=== PATIENT | male | born 1965 | race Caucasian/White ===

== ENCOUNTER 2023-10-04 07:50 | Observation (INO) | payer BC, SELFPAY ==
[2023-10-04] VITALS (67 sets, daily range): BP systolic 105–157; BP diastolic 47–97; PULSE 52–86; RESP 7–22; TEMP 36.5–36.6; O2SAT 78–100; BMI 45.6; BMI 49.5
--- NOTE | 2023-10-04 07:54 | ECG_ITS ---
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
--- NOTE | 2023-10-04 07:54 | XR_ITS ---
The [address] [address] Patient Name: ZEYNEP DAVISON MRN: [id number] date: 1965 Sex: M Assigned Patient Location: ER Current Patient Location: ER Accession/Order Number: [id number] Exam Date: 10/04/2023 08:05 Report Date: 10/04/2023 08:24 At the request of: TERESA SOTO Procedure: XR chest 1V EXAM: XR chest 1V HISTORY: vertigo COMPARISON: None TECHNIQUE: AP view of the chest was obtained with portable technique at 8:01 AM. FINDINGS: Heart is within the upper limits of normal for size. No acute infiltrate or consolidations are seen. Mild elevation the right hemidiaphragm. No obvious pneumothorax. Mild degenerative changes in the dorsal spine. XR/XR chest 1V IMPRESSION: No acute process seen in the chest. Electronically authenticated by: URBAN QUESADA Date: 10/04/2023 08:24
--- NOTE | 2023-10-04 07:54 | CT_ITS ---
The [address] [address] Patient Name: ZEYNEP DAVISON MRN: [id number] date: 1965 Sex: M Assigned Patient Location: ER Current Patient Location: ER Accession/Order Number: [id number] Exam Date: 10/04/2023 08:05 Report Date: 10/04/2023 08:37 At the request of: TERESA RODARTE Procedure: CT stroke head/brain wo con EXAMINATION: CT stroke head/brain wo con HISTORY: vertigo COMPARISON: No relevant comparison available. TECHNIQUE: Axial CT images were obtained without IV contrast. Dose reduction techniques were achieved by using automated exposure control and/or adjustment of mA and/or kV according to patient size and/or use of iterative reconstruction technique. FINDINGS: BRAIN: No acute hemorrhage or mass. Mild generalized supratentorial atrophy. Mild white matter hypoattenuation, chronic small vessel ischemic changes are favored CSF SPACES: No hydrocephalus, subarachnoid hemorrhage, or mass. Appropriate for age. SKULL: No fracture, mass, or other significant visible lesion. SINUSES: Mild bilateral maxillary sinus disease ORBITS: No appreciable abnormality on the limited views. OTHER: Scattered arterial calcifications Findings discussed with Dr. rodarte at 8:[address]/CT stroke head/brain wo con IMPRESSION: No acute intracranial abnormality Electronically authenticated by: PEPE SHORE Date: 10/04/2023 08:37
[2023-10-04 08:08] LABS: Basophils Absolute Auto 0.1 10^3/uL (0.0-0.1); Basophils Percent Auto 0.8 % (0.2-2.0); Eosinophils Absolute Auto 0.3 10^3/uL (0.0-0.7); Eosinophils Percent Auto 3.2 % (0.9-7.0); Hematocrit 45.5 % (42.0-54.0); Hemoglobin 14.5 g/dL (14.0-18.0); Immature Granulocytes Abs Auto 0.06 10^3/uL (0.00-0.03); Immature Granulocytes Pct Auto 0.6 % (0.0-0.5); Lymphocytes Absolute Auto 3.6 10^3/uL (1.2-3.8); Lymphocytes Percent Auto 35.1 % (20.5-60.0); Mean Corpuscular HGB Conc 31.9 g/dL (29.9-35.2); Mean Corpuscular Hemoglobin 30.3 pg (25.9-34.0); Mean Corpuscular Volume 95.2 fL (80.0-94.0); Mean Platelet Volume 10.4 fL (9.5-13.5); Monocytes Percent Auto 9.8 % (1.7-12.0); Neutrophils Absolute Auto 5.2 10^3/uL (1.4-6.5); Neutrophils Percent Auto 50.5 % (43.0-75.0); Platelet Count 212 10^3/uL (150-450); Red Blood Count 4.78 10^6/uL (4.70-6.10); Red Cell Distribution Width 13.6 % (11.0-15.0); White Blood Count 10.3 10^3/uL (4.0-11.0)
[2023-10-04] MEDS: ONDANSETRON PF 4 MG/2 ML VIAL IV ×3 (08:11→16:39)
[2023-10-04] MEDS: PROCHLORPERAZINE 10 MG/2 ML VIAL IV (08:19)
[2023-10-04] MEDS: DIAZEPAM 10 MG/2 ML SYRINGE 2 MG IV (08:19)
[2023-10-04 08:24] LABS: INR 0.97; Prothrombin Time 10.3 sec (9.0-11.6)
[2023-10-04] MEDS: 0.9 % SODIUM CHLORIDE 1,000 ML 1000 ML IV (08:24)
[2023-10-04 08:25] LABS: Alanine Aminotransferase 32 U/L (16-63); Alkaline Phosphatase 98 U/L (46-116); Aspartate Amino Transferase 27 U/L (15-37); BUN Creatinine Ratio 13.7; Bilirubin Total 0.4 mg/dL (0.2-1.0); Calcium 8.8 mg/dL (8.5-10.1); Carbon Dioxide 27.2 mmol/L (21.0-32.0); Chloride 101 mmol/L (98-107); Estimated GFR (African America >60 (>=60); Estimated GFR (Non-African Ame 52 (>=60); Globulin 3.9 g/dL; Glucose 206 mg/dL (74-106); Potassium 3.2 mmol/L (3.5-5.1); Sodium 139 mmol/L (136-145); Total Protein 7.9 g/dL (6.4-8.2)
[2023-10-04 08:27] LABS: Troponin I High Sensitivity 15.8 pg/mL (4.0-76.1)
--- NOTE | 2023-10-04 08:31 | ED.GENADUL1 ---
HPI - General Adult General Chief complaint: Dizziness Stated complaint: DIZZINESS, VOMITING Time Seen by Provider: 10/04/23 07:53 Source: patient and other Source information: EMS Mode of arrival: ambulance Limitations: altered mental status History of Present Illness HPI narrative: Patient is a 58-year-old male who is presenting to the Emergency Room by EMS secondary to vertigo. Patient was driving home from work today. 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 Patient was driving home, thankfully he was pulled over by the police secondary to dizziness. Patient had acute onset of vertigo driving on the way home. Patient's having intractable nausea and vomiting secondary to vertigo. No headache. Patient has had vertigo several years ago. Patient has no chest pain or shortness of breath. Patient blood sugar was checked and it was over 200 by EMS. Patient did have an IV established by EMS and then it became no good. Patient has no headache or neck pain, patient intractable vomiting, no other acute complaints. No coffee-ground emesis, no hematemesis, patient has yellowish green emesis that is coming out. . All systems are negative except as noted/marked. All systems reviewed and otherwise negative. . Nurses note and vital signs reviewed and patient is not hypoxic. General: The patient appears well and in no apparent distress. Patient is resting comfortably on cart. Patient is not toxic, lethargic, or listless Skin: Warm, dry, no pallor noted. There is no rash noted. No petechiae, purpura. Head: Normocephalic, atraumatic, No midline or paracervical tenderness to palpation; large thick neck, Eye: Normal conjunctiva, no drainage, EOMI. PERRL; No nystagmus vertical, horizontal,Or rotary. Ears, Nose, Mouth, and Throat: oral mucosa is moist. Nares patent. Mouth without vesicles. Patient Bilateral tympanic membranes shows no erythema, perforation or bulging. Cardiovascular: Regular Rate and Rhythm, no murmur, gallop, rub Respiratory: Patient is in no distress, no accessory muscle use, lungs are clear to auscultation, no wheezing, rales or rhonchi Back: non-tender, no CVA tenderness bilaterally to percussion. No CT LS midline pain GI: soft, Morbidly obese, no tenderness to palpation, no masses appreciated. No rebound, guarding, or rigidity noted. No flank pain bilateral, No distention Musculoskeletal: Patient has full range of motion of all of the extremities, no motor, sensory, or focal neurological deficits Neurological: A&O x3, normal speech; NIH 0 Psychiatric: Cooperative Related Data Home Medications Medication Instructions Recorded Confirmed atorvastatin 40 mg tablet 40 mg PO .qd 10/04/23 10/04/23 empagliflozin 10 mg tablet 10 mg PO .qd 10/04/23 10/04/23 (Jardiance) hydrochlorothiazide 12.5 mg tablet 12.5 mg PO .qd 10/04/23 10/04/23 lisinopril 40 mg tablet 40 mg PO .qd 10/04/23 10/04/23 metoprolol succinate 100 mg 100 mg PO .qd 10/04/23 10/04/23 tablet,extended release 24 hr Previous Rx's Medication Instructions Recorded meclizine 25 mg chewable tablet 25 mg PO TID PRN dizziness or 10/04/23 (Antivert) vertigo #7 tabs ondansetron 4 mg disintegrating 4 mg PO Q4H PRN nausea and 10/04/23 tablet vomiting 3 days #6 tabs Allergies Allergy/AdvReac Type Severity Reaction Status Date / Time No Known Drug Allergies Allergy Verified 10/04/23 08:02 [facility] Social History Smoking status: Current every day smoker Exam Constitutional Vital Signs, click to edit/add: Last Vital Signs Temp 97.7 F 10/04/23 07:57 Pulse 77 10/04/23 11:01 Resp 17 10/04/23 11:01 BP 115/71 10/04/23 13:01 Pulse Ox 98 10/04/23 13:01 O2 Del Method Room Air 10/04/23 07:57 Course Vital Signs Vital signs: Vital Signs Temperature 97.7 F 10/04/23 07:57 Pulse Rate 77 10/04/23 07:57 Respiratory Rate 18 10/04/23 07:57 Blood Pressure 157/97 H 10/04/23 07:57 Pulse Oximetry 92 L 10/04/23 07:57 Oxygen Delivery Method Room Air 10/04/23 07:57 Temperature 97.7 F 10/04/23 07:57 Pulse Rate 77 10/04/23 11:01 Respiratory Rate 17 10/04/23 11:01 Blood Pressure 115/71 10/04/23 13:01 Pulse Oximetry 98 10/04/23 13:01 Oxygen Delivery Method Room Air 10/04/23 07:57 Medical Decision Making MDM Narrative Medical decision making narrative: CT of the brain shows no acute pathology. Patient was initially placed on nasal cannula and patient has benign nonrebreather Secondary to patient Being somnolent from just getting off manager configuration initially sleeping at this time, also secondary to receiving Compazine and Valium to help with nausea and vertigo. Patient oxygen was dropping, patient has been on a 15 L nonrebreather for most of his Emergency Room stay. Patient was Intermittently trying to take the nonrebreather off because of comfort. Patient was redirected several times by Taryn CONNELLY that he needs to wear his oxygen/nonrebreather was in the Emergency Room to help improving hypoxia when he is not wearing oxygen. Patient's CO2 level was 59,Patient's pH is 7.29. Patient has ongoing chronic respiratory acidosis secondary to undiagnosed sleep apnea. Patient sleeps in another room from his . Patient's nor significant family. Patient was told that he should have had a sleep apnea test many, many years ago from his PCP from [place]. 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 Patient and understand very clearly the significance and importance of following up with a sleep study and patient most likely needs to be wearing some type of oxygen/CPAP/device to help him sleep at nighttime. He states this is been going on for a long time, possibly 10-20 years if not longer. Patient's vertigo has improved. Patient was given Zofran, Compazine and Valium to help with nausea, patient was given Valium and meclizine to help with vertigo. Patient vertigo and nausea have completely resolved at discharge. 5-10 minutes was spent at bedside talking about sleep apnea, chronic hypercarbia, chronic respiratory acidosis, and the importance of following up with testing as recommended by his PCP and to have sleep studies and patient should be wearing some type of oxygen at nighttime. Patient are very clear on this. agrees, even try to get him to do this test 3 years and patient has refused. Patient is alert and oriented ?3, has a functional decision capacity to be discharged will follow-up with PCP. At discharge, patient was stood up, patient was very unsteady, wildly, and vertigo started again with nausea and dry heaving. Patient will now be admitted for intractable vertigo. I spoke to Dr Brennan, and he'll be admitting the patient. He is aware of intractable vertigo. I educated patient is about ruling out vertebrobasilar stroke or any other possible etiology for vertigo. Patient case was also discussed with admitting hospitalist about his chronic respiratory acidosis, most likely difficulty with sleep apnea at nighttime is been going on for over 10-20 years per patient and . Lab Data Lab results reviewed: Yes I reviewed the patient's lab results Labs: Lab Results 10/04/23 10/04/23 10/04/23 Range/Units 08:02 08:07 08:31 WBC 10.3 (4.0-11.0) 10^3/uL RBC 4.78 (4.70-6.10) 10^6/uL Hgb 14.5 (14.0-18.0) g/dL Hct 45.5 (42.0-54.0) % MCV 95.2 H (80.0-94.0) fL MCH 30.3 (25.9-34.0) pg MCHC 31.9 (29.9-35.2) g/dL RDW 13.6 (11.0-15.0) % Plt Count 212 (150-450) 10^3/uL MPV 10.4 (9.5-13.5) fL Neut % (Auto) 50.5 (43.0-75.0) % Lymph % (Auto) 35.1 (20.5-60.0) % [place] % (Auto) 9.8 (1.7-12.0) % Eos % (Auto) 3.2 (0.9-7.0) % Baso % (Auto) 0.8 (0.2-2.0) % Neut # (Auto) 5.2 (1.4-6.5) 10^3/uL Lymph # (Auto) 3.6 (1.2-3.8) 10^3/uL [place] # (Auto) 1.0 H (0.3-0.8) 10^3/uL Eos # (Auto) 0.3 (0.0-0.7) 10^3/uL Baso # (Auto) 0.1 (0.0-0.1) 10^3/uL Abs Immat Gran (auto) 0.06 H (0.00-0.03) 10^3/uL Imm/Tot Granulo (auto) 0.6 H (0.0-0.5) % PT 10.3 (9.0-11.6) sec INR 0.97 VBG pH (7.330-7.430) VBG pCO2 (40.0-52.0) mmHg Sodium 139 (136-145) mmol/L Potassium 3.2 L (3.5-5.1) mmol/L Chloride 101 (98-107) mmol/L Carbon Dioxide 27.2 (21.0-32.0) mmol/L Anion Gap 14.0 BUN 19.0 H (7.0-18.0) mg/dL Creatinine 1.39 H (0.70-1.30) mg/dL Est GFR ( Amer) >60 (>=60) Est GFR (Non-Af Amer) 52 L (>=60) BUN/Creatinine Ratio 13.7 Glucose 206 H (74-106) mg/dL Estimat Average Glucose 160 mg/dL Hemoglobin A1c 7.2 H (4.5-6.2) % Calcium 8.8 (8.5-10.1) mg/dL Total Bilirubin 0.4 (0.2-1.0) mg/dL AST 27 (15-37) U/L ALT 32 (16-63) U/L Alkaline Phosphatase 98 (46-116) U/L Troponin I High Sens 15.8 (4.0-76.1) pg/mL Total Protein 7.9 (6.4-8.2) g/dL Albumin 4.0 (3.4-5.0) g/dL Globulin 3.9 g/dL Albumin/Globulin Ratio 1.0 Triglycerides 201 H (<=150) mg/dL Cholesterol 159 (<=200) mg/dL LDL Cholesterol, Calc 80.0 mg/dL VLDL Cholesterol 40.2 mg/dL HDL Cholesterol 39 L (40-60) mg/dL Cholesterol/HDL Ratio 4.1 Urine Color (YELLOW) Urine Clarity (CLEAR) Urine pH (5.0-9.0) Ur Specific [place] (1.005-1.025) Urine Protein (NEG/TRACE) mg/dL Urine Glucose (UA) (NEGATIVE) mg/dL Urine Ketones (NEGATIVE) mg/dL Urine Occult Blood (NEGATIVE) Urine Nitrite (NEGATIVE) Urine Bilirubin (NEGATIVE) Urine Urobilinogen (0.2-1.0) EU/dL Ur Leukocyte Esterase (NEGATIVE) Urine RBC (0-2) #/HPF Urine WBC (NONE SEEN) #/HPF Ur Squamous Epith Cells (NONE/RARE) #/LPF Urine Bacteria (NONE SEEN) #/HPF Urine Mucus (NONE SEEN) 10/04/23 10/04/23 Range/Units 08:36 09:10 WBC (4.0-11.0) 10^3/uL RBC (4.70-6.10) 10^6/uL Hgb (14.0-18.0) g/dL Hct (42.0-54.0) % MCV (80.0-94.0) fL MCH (25.9-34.0) pg MCHC (29.9-35.2) g/dL RDW (11.0-15.0) % Plt Count (150-450) 10^3/uL MPV (9.5-13.5) fL Neut % (Auto) (43.0-75.0) % Lymph % (Auto) (20.5-60.0) % [place] % (Auto) (1.7-12.0) % Eos % (Auto) (0.9-7.0) % Baso % (Auto) (0.2-2.0) % Neut # (Auto) (1.4-6.5) 10^3/uL Lymph # (Auto) (1.2-3.8) 10^3/uL [place] # (Auto) (0.3-0.8) 10^3/uL Eos # (Auto) (0.0-0.7) 10^3/uL Baso # (Auto) (0.0-0.1) 10^3/uL Abs Immat Gran (auto) (0.00-0.03) 10^3/uL Imm/Tot Granulo (auto) (0.0-0.5) % PT (9.0-11.6) sec INR VBG pH 7.289 L (7.330-7.430) VBG pCO2 59.8 H (40.0-52.0) mmHg Sodium (136-145) mmol/L Potassium (3.5-5.1) mmol/L Chloride (98-107) mmol/L Carbon Dioxide (21.0-32.0) mmol/L Anion Gap BUN (7.0-18.0) mg/dL Creatinine (0.70-1.30) mg/dL Est GFR ( Amer) (>=60) Est GFR (Non-Af Amer) (>=60) BUN/Creatinine Ratio Glucose (74-106) mg/dL Estimat Average Glucose mg/dL Hemoglobin A1c (4.5-6.2) % Calcium (8.5-10.1) mg/dL Total Bilirubin (0.2-1.0) mg/dL AST (15-37) U/L ALT (16-63) U/L Alkaline Phosphatase (46-116) U/L Troponin I High Sens (4.0-76.1) pg/mL Total Protein (6.4-8.2) g/dL Albumin (3.4-5.0) g/dL Globulin g/dL Albumin/Globulin Ratio Triglycerides (<=150) mg/dL Cholesterol (<=200) mg/dL LDL Cholesterol, Calc mg/dL VLDL Cholesterol mg/dL HDL Cholesterol (40-60) mg/dL Cholesterol/HDL Ratio Urine Color Lt. yellow (YELLOW) Urine Clarity Clear (CLEAR) Urine pH 6.0 (5.0-9.0) Ur Specific [place] 1.020 (1.005-1.025) Urine Protein Negative (NEG/TRACE) mg/dL Urine Glucose (UA) >=1000 A (NEGATIVE) mg/dL Urine Ketones Negative (NEGATIVE) mg/dL Urine Occult Blood Negative (NEGATIVE) Urine Nitrite Negative (NEGATIVE) Urine Bilirubin Negative (NEGATIVE) Urine Urobilinogen 0.2 (0.2-1.0) EU/dL Ur Leukocyte Esterase Negative (NEGATIVE) Urine RBC None seen (0-2) #/HPF Urine WBC None seen (NONE SEEN) #/HPF Ur Squamous Epith Cells Few A (NONE/RARE) #/LPF Urine Bacteria None seen (NONE SEEN) #/HPF Urine Mucus None seen (NONE SEEN) ECG Data Attestation: I personally reviewed and interpreted this ECG as follows: (EKG interpretation. Normal sinus rhythm at 75 beats a minute. Left axis deviation. No acute ST elevation, no acute ectopy. QTC of 453.) Discharge Plan Discharge Chief Complaint: Dizziness Clinical Impression: Sleep apnea-like behavior, History of respiratory acidosis, Vertigo, Nausea & vomiting Patient Disposition: Admitted as Observation Time of Disposition Decision: 10:57 Condition: Fair
[2023-10-04 08:47] LABS: PCO2 VBG 59.8 mmHg (40.0-52.0); pH VBG 7.289 (7.330-7.430)
--- NOTE | 2023-10-04 08:47 | PC.NURSE ---
Pt placed on NRB d/t bad sleep apnea. pt keeps falling asleep and SpO2 drops to 78% on RA. Pt occasionally will take off NRB mask but with it, pt is 100%
[2023-10-04] MEDS: MECLIZINE HCL 12.5 MG TABLET 25 MG PO (09:30)
[2023-10-04] MEDS: POTASSIUM BICARBONATE/CIT 25 MEQ TABLET EFF 50 MEQ PO (09:31)
[2023-10-04 10:02] LABS: Bilirubin Urine NEGATIVE (NEGATIVE); Blood Urine NEGATIVE (NEGATIVE); Clarity Urine CLEAR (CLEAR); Color Urine LT. YELLOW (YELLOW); Glucose Urine UA >=1000 mg/dL (NEGATIVE); Ketones Urine NEGATIVE (NEGATIVE); Leukocyte Esterase Urine NEGATIVE (NEGATIVE); Nitrite Urine NEGATIVE (NEGATIVE); Protein Urine NEGATIVE (NEG/TRACE); Urobilinogen Urine 0.2 EU/dL (0.2-1.0)
[2023-10-04 10:11] LABS: Bacteria Urine NONE SEEN #/HPF (NONE SEEN); Mucus Urine NONE SEEN (NONE SEEN); RBC Urine NONE SEEN #/HPF (0-2); Squamous Epithelial Cell Urine FEW #/LPF (NONE/RARE); WBC Urine NONE SEEN #/HPF (NONE SEEN)
--- NOTE | 2023-10-04 10:14 | PC.NURSE ---
ASKED PT IF HE WOULD LIKE TO TRY TO GET UP AND WALK -- STATES HE DOESN'T THINK HE WILL BE ABLE TO DO IT D/T THE DIZZINESS. INFORMED DR SOTO
--- NOTE | 2023-10-04 11:32 | PC.NURSE ---
PT GOT READY TO BE DISCHARGED, PT WOBBLY WHEN HE STOOD UP. SAT PT BACK DOWN ON BED. PT STATES VERTIGO IS BAD AGAIN AND STARTS VOMITING. INFORMED DR SOTO.
--- NOTE | 2023-10-04 11:35 | MR_ITS ---
The [place] [id number] Patient Name: ZEYNEP DAVISON MRN: [id number] date: 1965 Sex: M Assigned Patient Location: MS Current Patient Location: MS Accession/Order Number: [id number] Exam Date: 10/04/2023 12:10 Report Date: 10/04/2023 14:27 At the request of: SHAIKH DAWIT Procedure: MR head/brain wo con MRI brain without contrast, 10/04/2023. HISTORY: Dizziness. Disorientation. COMPARISON: CT head, 10/04/2023. TECHNIQUE: Multiplanar, multisequence MRI imaging of the brain without contrast. FINDINGS: There is motion artifact. Paranasal sinuses are essentially clear. Mastoid air cells are clear. Nasopharynx normal. [employer] spaces are normal. Orbital contents are unremarkable. No hydrocephalus. No mass effect. No shift of midline. Mild chronic microvascular ischemic changes in the cerebral white matter. Diffusion images normal. No evidence of acute ischemic infarction. No hemorrhagic lesions. No masses. MR/MR head/brain wo con IMPRESSION: 1. No acute infarction. Mild chronic microvascular ischemic changes. 2. No masses. No acute findings. Electronically authenticated by: TAMICA HARTMAN Date: 10/04/2023 14:27
[2023-10-04 12:20] LABS: Chol HDL Ratio 4.1; Cholesterol 159 mg/dL (<=200); HDL Cholesterol 39 mg/dL (40-60); Triglycerides 201 mg/dL (<=150); VLDL CHOLESTEROL 40.2 mg/dL
[2023-10-04 12:21] LABS: Estimated Average Glucose 160 mg/dL; Glycohemoglobin A1C 7.2 % (4.5-6.2)
[2023-10-04] MEDS: LACTATED RINGER'S SOLUTION 1,000 ML 100 ML IV (14:51)
[2023-10-04 16:21] LABS: Allen Test POSITIVE (POSITIVE); Base Excess ABG 4.7 mmol/L (-2.0-2.0); HCO3 ABG 32.1 mmol/L (22.0-26.0); Liters per Minute 15; O2 Mode NRBM; Puncture Site L RADIAL
--- NOTE | 2023-10-04 16:32 | RESP.RT ---
patient placed on vapotherm 40L, 30%, post ABG draw.
[2023-10-04] MEDS: ENOXAPARIN SODIUM 40 MG/0.4 ML SYRINGE SUBQ (16:39)
[2023-10-04] MEDS: ASPIRIN 81 MG TAB.CHEW PO (16:40)
--- NOTE | 2023-10-04 17:45 | CT_ITS ---
The [address] [address] Patient Name: ZEYNEP DAVISON MRN: [id number] date: 1965 Sex: M Assigned Patient Location: ICU Current Patient Location: ICU Accession/Order Number: [id number] Exam Date: 10/04/2023 19:25 Report Date: 10/04/2023 20:41 At the request of: SHAIKH DAWIT Procedure: CT angio chest EXAM: CT angio chest HISTORY: SOB COMPARISON: Chest x-ray dated 10/04/2023. TECHNIQUE: Multiple axial images of the chest were obtained following rapid IV contrast sedation. Coronal and sagittal reformatted sequences are submitted for review. FINDINGS: This is a limited examination due to breathing artifact and suboptimal contrast opacification of the pulmonary arteries. No definite abrupt cut off or significant filling defect is seen in the central or proximal segmental pulmonary arteries to suggest CT evidence for pulmonary embolism. The main pulmonary trunk measures approximately 3.3 cm in diameter. Thoracic aorta is normal in course and caliber. There is no evidence for thoracic aortic aneurysm. Mild cardiomegaly is seen. There is no evidence for pericardial effusion. Mild atelectatic changes are seen in the lung bases bilaterally. Small hazy changes are also seen in the subpleural bilateral upper lobes, which may represent atelectatic changes. However, infectious etiology cannot be excluded. No significant enlarged hilar, mediastinal or axillary adenopathy is seen. No acute abnormality seen in the visualized upper abdomen. No acute or destructive osseous lesion is seen. CT/CT angio chest IMPRESSION: Limited examination due to breathing artifact and suboptimal contrast opacification of the pulmonary arteries. No definite CT evidence for pulmonary embolism seen in the central and proximal segmental pulmonary arteries. The main pulmonary trunk appears prominent, measuring approximately 3.3 cm in diameter. Clinical correlation for pulmonary artery hypertension may be considered. Mild atelectatic changes are seen in the lung bases bilaterally. Small hazy changes are also seen in the subpleural bilateral upper lobes, which may represent atelectatic changes. However, infectious etiology cannot be excluded. Electronically authenticated by: VÍCTOR BENJAMIN Date: 10/04/2023 20:41
--- NOTE | 2023-10-04 18:15 | RESP.RT ---
FiO2 increased from 30% to 50% as SpO2 down into 70's multiple times with deep sleep. Observed long periods of apnea while in the room.
[2023-10-04 18:18] LABS: Amphetamine Screen Urine NEGATIVE (NEGATIVE); Barbiturates Screen Urine NEGATIVE (NEGATIVE); Benzodiazepines Screen Urine NEGATIVE (NEGATIVE); Buprenorphine Screen Urine NEGATIVE (NEGATIVE); Cannabinoid Screen Urine NEGATIVE (NEGATIVE); Cocaine Screen Urine NEGATIVE (NEGATIVE); Methadone Screen Urine NEGATIVE (NEGATIVE); Methamphetamines Screen Urine NEGATIVE (NEGATIVE); Opiate Screen Urine NEGATIVE (NEGATIVE); Oxycodone Screen Urine NEGATIVE (NEGATIVE); Phencyclidine Screen Urine NEGATIVE (NEGATIVE); Tricyclic Antidepressant Urine NEGATIVE (NEGATIVE)
[2023-10-04] MEDS: LISINOPRIL 20 MG TABLET 40 MG PO (18:23)
[2023-10-04] MEDS: METOPROLOL SUCCINATE 100 MG TAB.ER.24H PO (18:23)
[2023-10-04 19:00] LABS: pH ABG 7.303 (7.350-7.450)
[2023-10-04 19:01] LABS: Allen Test POSITIVE (POSITIVE); Base Excess ABG 3.7 mmol/L (-2.0-2.0); HCO3 ABG 30.1 mmol/L (22.0-26.0)
[2023-10-04 19:02] LABS: BIPAP Pressure 18/8; Fractionated Inspired Oxygen 40 %; Puncture Site LR
[2023-10-04 19:03] LABS: Pressure Support 10; Rate 12
[2023-10-04 19:08] LABS: O2 Mode BIPAP
[2023-10-04 19:09] LABS: ABG PCO2 60.8 mmHg (35.0-45.0)
--- NOTE | 2023-10-04 20:16 | P.HP_ITS ---
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 However, before that could happen, local cupola repairer saw him and stopped to help him and called EMS for medical assistance. He was brought over to ED and was initially treated for possible peripheral vertigo and was given IV valium, meclizine with some improvement in his symptoms and plan was to discharge him with outpatient follow up but he got extremely dizzy and was really unsteady on his feet so hospitalist service was called for admission and evaluation. Patient also has been told that he likely has SHIRA but never formally diagnosed. ED provider noted that he was excessively snoring with apneic episodes and associated hypoxia and was concerned for possible respiratory acidosis. His VBG indicated mild resp acidosis presumed to be not much different from his baseline and when I assessed him in ED, while he was sleepy and drowsy, he was easily arousable, communicated well, participated in exam and answered questions appropriately. However, later on I was notified that patient developed worsening hypoxia, and became increasingly confused, lethargic that prompted an ABG - revealing worsening resp acidosis. Patient was moved to ICU on BIPAP for close monitoring. Patient's admission status was changed to inpatient due to change in clinical status. Repeat ABG shows improvement in acidosis, hypercapnia, hypoxia and I was inform ed by RN that patient is now much more comfortable, awake and in no acute distress. I ordered CTA chest for him to r/o PE and also an ECHO to assess cardiac structure to r/o alternative diagnosis and congestive HF, PE or pneumonia. His neurological examination at the time when I evaluated him was completely normal. He was still complaining of vertigo when he stood up and he felt better when he lays down. No prior hx of CVA or vertigo. Review of Systems ROS Status of ROS 10 or more systems reviewed and unremark able except as noted in history and below [facility] Medical History (Updated 10/04/23 @ 20:40 by Shaikh Mika MD) Obesity hypoventilation syndrome ?E66.2 - Morbid (severe) obesity with alveolar hypoventilation (ICD-10) Obesity ?E66.9 - Obesity, unspecified (ICD-10) High cholesterol ?E78.00 - Pure hypercholesterolemia, unspecified (ICD-10) Hypertension ?I10 - Essential (primary) hypertension (ICD-10) Heart murmur ?R01.1 - Cardiac murmur, unspecified (ICD-10) Diabetes ?E11.9 - Type 2 diabetes mellitus without complications (ICD-10) Family History (Updated 10/04/23 @ 14:04 by Magdalena Rosario) Grandmother Family history of cancer Father Family history of diabetes mellitus Family history of hypertension Mother Family history of diabetes mellitus Family history of hypertension Social History (Updated 10/04/23 @ 14:06 by Magdalena Rosario) Within the past year, how often did you have a drink containing alcohol: never Within the past year, how often did you have six or more drinks on one occasion: never Score interpretation: A score less than 4 is consistent with normal alcohol consumption. Smoking status: Current every day smoker Non-prescribed substance use: denies use Previous occupational history: [employer] Highest level of school completed/degree received: high school graduate Are you now , , , , never or living with a partner: In a typical week, how many times do you talk on the telephone with family, friends, or neighbors: 3 or more times per week How often do you get together with friends or relatives: twice per week How often do you attend adventism or buddhism services: never Do you belong to any clubs or organizations such as adventism groups unions, fraternal or athletic groups, or school groups: no Total score: 2 Score interpretation: A score of greater than or equal to 2 indicates the lowest level of social isolation. Little interest or pleasure in doing things: not at all Feeling down, depressed, or hopeless: not at all Meds Home Medications and Allergies Home Medications Medication Instructions Recorded Confirmed Type aspirin 81 mg capsule 81 mg PO DAILY 10/04/23 10/04/23 History atorvastatin 40 mg tablet 40 mg PO .qd 10/04/23 10/04/23 History empagliflozin 10 mg tablet 10 mg PO .qd 10/04/23 10/04/23 History (Jardiance) hydrochlorothiazide 12.5 mg tablet 12.5 mg PO .qd 10/04/23 10/04/23 History lisinopril 40 mg tablet 40 mg PO .qd 10/04/23 10/04/23 History meclizine 25 mg chewable tablet 25 mg PO TID PRN dizziness or 10/04/23 Rx (Antivert) vertigo #7 tabs metoprolol succinate 100 mg 100 mg PO .qd 10/04/23 10/04/23 History tablet,extended release 24 hr ondansetron 4 mg disintegrating 4 mg PO Q4H PRN nausea and 10/04/23 Rx tablet vomiting 3 days #6 tabs Allergies Allergy/AdvReac Type Severity Reaction Status Date / Time No Known Drug Allergies Allergy Verified 10/04/23 08:02 Exam Constitutional Vital Signs, click to edit/add: Last Vital Signs Temp 97.8 F 10/04/23 13:57 Pulse 66 10/04/23 19:08 Resp 18 10/04/23 13:57 BP 137/91 10/04/23 18:23 Pulse Ox 97 10/04/23 19:08 O2 Del Method Vapotherm 10/04/23 16:33 O2 Flow Rate 40 10/04/23 16:33 FiO2 40 10/04/23 17:50 Common normals: no apparent distress General appearance: cooperative, comfortable and lethargic Nutritional appearance: obese HENMT Common normals: normocephalic and head/scalp atraumatic Eye Common normals: PERRL, EOMs intact bilaterally and conjunctivae normal Respiratory Common normals: normal respiratory effort Effort & inspection: able to speak in complete sentences Auscultation: clear to auscultation bilaterally and diminished lung sounds Cardio Common normals: no JVD, regular rate, regular rhythm, S1 normal heart sound and S2 normal heart sound GI Common normals: Normal to inspection, nondistended, normoactive bowel sounds present, soft to palpation, non-tender and no hepatosplenomegaly Extremity Common normals: no clubbing, cyanosis or edema Neuro Common normals: oriented x3, CN's II-XII intact bilaterally, moves all extremities, no focal motor deficits and no sensory deficits noted Sensorium/orientation: somnolent Coordination: [id number] test normal and [id number] test normal Results Labs Labs: Short CBC 10/04/23 Range/Units 08:02 WBC 10.3 (4.0-11.0) 10^3/uL Hgb 14.5 (14.0-18.0) g/dL Hct 45.5 (42.0-54.0) % Plt Count 212 (150-450) 10^3/uL BMP 10/04/23 08:02 Sodium 139 Potassium 3.2 L Chloride 101 Carbon Dioxide 27.2 BUN 19.0 H Creatinine 1.39 H Glucose 206 H Calcium 8.8 Liver Function 10/04/23 Range/Units 08:02 Total Bilirubin 0.4 (0.2-1.0) mg/dL AST 27 (15-37) U/L ALT 32 (16-63) U/L Alkaline Phosphatase 98 (46-116) U/L Albumin 4.0 (3.4-5.0) g/dL Urine 10/04/23 Range/Units 09:10 Urine Color Lt. yellow (YELLOW) Urine Clarity Clear (CLEAR) Urine pH 6.0 (5.0-9.0) Ur Specific [place] 1.020 (1.005-1.025) Urine Protein Negative (NEG/TRACE) mg/dL Urine Glucose (UA) >=1000 A (NEGATIVE) mg/dL ABG ABG results: 10/04/23 10/04/23 10/04/23 08:36 16:08 18:50 ABG pH 7.240 L* 7.303 L ABG pCO2 75.0 H* 60.8 H* ABG pO2 225.0 H 123.0 H ABG HCO3 32.1 H 30.1 H ABG O2 Saturation 100.0 99.0 ABG Base Excess 4.7 H 3.7 H VBG pH 7.289 L VBG pCO2 59.8 H Assessment and Plan Assessment and Plan (1) Acute and chronic respiratory failure with hypercapnia: Assessment and Plan: Suspect OHS and chronic resp failure - never formally diagnosed but strong suspicion Acutely worsened from IV valium and NRB mask. However, an alternative etiology is being work up - CTA ordered to r/o PE, pneumonia and ECHO to r/o underlying congestive heart failure. Required ICU transfer, now on BIPAP. F/u ABG shows improvement. C/w BIPAP throughout the night. Avoid sedative/hypnotics. (2) Acute respiratory failure with hypoxia: Assessment and Plan: Unclear etiology but likely due to undiagnosed OHS and SHIRA. Normal CXR. No evidence of CHF clinically. CTA ordered to r/o PE Wean off O2 as tolerated. Currently on BIPAP. (3) Vertigo: Assessment and Plan: Acute onset with nausea, vomiting - no associated neurological symptoms. MRI negative for acute stroke. Likely peripheral vertigo. Meclizine as needed for vertigo (4) Diabetes: Assessment and Plan: on oral hypoglycemics. SSI while in patient. Qualifiers: Diabetes mellitus type: type 2 Diabetes mellitus senior living insulin use: without termite helper use Diabetes mellitus complication status: without complication Qualified Code(s): E11.9 - Type 2 diabetes mellitus without complications (5) Obesity hypoventilation syndrome: Assessment and Plan: Suspect underlying OHS. Currently on BIPAP. Will need outpatient Sleep study. Avoid sedative/hypnotics. (6) Hypertension: Assessment and Plan: c/w lisinopril. Hold HCTZ. Qualifiers: Hypertension type: primary hypertension Qualified Code(s): I10 - Essential (primary) hypertension (7) High cholesterol: Assessment and Plan: c/w statin (8) Obesity: Assessment and Plan: Recommend weight loss. Defer to PCP Qualifiers: Obesity type: due to excess calories Obesity classification: adult class 3 (BMI >= 40) Serious obesity comorbidity presence: with serious comorbidity (9) Elevated serum creatinine: Assessment and Plan: mild elevation. unknown baseline. Monitor for now.
--- NOTE | 2023-10-04 20:44 | RESP.RT ---
increased respiratory rate to 14
[2023-10-04 22:44] LABS: Glucometer 123 mg/dL (74-106)
[2023-10-05] VITALS (94 sets, daily range): BP systolic 114–172; BP diastolic 73–98; PULSE 58–85; RESP 0–20; TEMP 36.3–36.6; O2SAT 63–99
[2023-10-05 05:47] LABS: Basophils Percent Auto 0.4 % (0.2-2.0); Eosinophils Absolute Auto 0.1 10^3/uL (0.0-0.7); Eosinophils Percent Auto 1.9 % (0.9-7.0); Hematocrit 42.1 % (42.0-54.0); Hemoglobin 13.4 g/dL (14.0-18.0); Immature Granulocytes Abs Auto 0.03 10^3/uL (0.00-0.03); Immature Granulocytes Pct Auto 0.4 % (0.0-0.5); Lymphocytes Absolute Auto 1.5 10^3/uL (1.2-3.8); Lymphocytes Percent Auto 20.3 % (20.5-60.0); Mean Corpuscular HGB Conc 31.8 g/dL (29.9-35.2); Mean Corpuscular Hemoglobin 30.3 pg (25.9-34.0); Mean Corpuscular Volume 95.2 fL (80.0-94.0); Mean Platelet Volume 10.9 fL (9.5-13.5); Monocytes Absolute Auto 0.6 10^3/uL (0.3-0.8); Monocytes Percent Auto 7.8 % (1.7-12.0); Neutrophils Absolute Auto 5.2 10^3/uL (1.4-6.5); Neutrophils Percent Auto 69.2 % (43.0-75.0); Platelet Count 182 10^3/uL (150-450); Red Blood Count 4.42 10^6/uL (4.70-6.10); Red Cell Distribution Width 13.5 % (11.0-15.0); White Blood Count 7.6 10^3/uL (4.0-11.0)
[2023-10-05 06:07] LABS: Alanine Aminotransferase 27 U/L (16-63); Albumin Globulin Ratio 0.9; Albumin Level 3.4 g/dL (3.4-5.0); Alkaline Phosphatase 73 U/L (46-116); Anion Gap 13.3; Aspartate Amino Transferase 21 U/L (15-37); BUN Creatinine Ratio 15.9; Bilirubin Total 0.7 mg/dL (0.2-1.0); Calcium 8.5 mg/dL (8.5-10.1); Carbon Dioxide 29.4 mmol/L (21.0-32.0); Chloride 101 mmol/L (98-107); Estimated GFR (African America >60 (>=60); Estimated GFR (Non-African Ame >60 (>=60); Globulin 3.6 g/dL; Glucose 95 mg/dL (74-106); Potassium 3.7 mmol/L (3.5-5.1); Sodium 140 mmol/L (136-145)
[2023-10-05 09:17] LABS: Glucometer 105 mg/dL (74-106)
[2023-10-05] MEDS: ENOXAPARIN SODIUM 40 MG/0.4 ML SYRINGE SUBQ (09:25)
[2023-10-05] MEDS: ASPIRIN 81 MG TAB.CHEW PO (09:25)
[2023-10-05] MEDS: METOPROLOL SUCCINATE 100 MG TAB.ER.24H PO (09:26)
[2023-10-05] MEDS: LISINOPRIL 20 MG TABLET 40 MG PO (09:26)
--- NOTE | 2023-10-05 10:51 | REH.PTDLY ---
Physical Therapy Daily Note PT Daily Note/Assess Start: 10/04/23 17:03 Freq: Status: Active Protocol: Document 10/05/23 10:30 [id number] (Rec: 10/05/23 10:33 [id number]) Visit Not Completed Visit Not Completed Due to: Nursing request to hold Other Reason Visit Not Completed Per RN Steffi - fernanda this patient is on bipap and lethargic. Physical Therapy Daily Note/Assessment Time In 08:50 Time Out 08:52
--- NOTE | 2023-10-05 10:53 | REH.PTDLY ---
Physical Therapy Daily Note PT Daily Note/Assess Start: 10/04/23 17:03 Freq: Status: Active Protocol: Document 10/05/23 10:30 [id number] (Rec: 10/05/23 10:33 [id number]) Visit Not Completed Visit Not Completed Due to: Nursing request to hold Other Reason Visit Not Completed Per RN Steffi - fernanda this patient is on bipap and lethargic. Physical Therapy Daily Note/Assessment Time In 08:50 Time Out 08:52
--- NOTE | 2023-10-05 11:49 | PM.PN ---
Progress Note: Subjective Subjective Interval history: Patient improved this am. Used BiPAP overnight and more alert this am. Took off BiPAP for breakfast and desaturated on room air but improved on nasal canula. No SOB or cough. Still feels fatigued and run down. Reports prior home oxygen several years ago but did not keep. Normal appetite and no emesis or diarrhea. No chest pain or palpitations. Afebrile. Exam Constitutional Vital Signs, click to edit/add: Last Vital Signs Temp 97.6 F 10/05/23 08:48 Pulse 84 10/05/23 11:15 Resp 6 L 10/05/23 09:40 BP 114/80 10/05/23 09:26 Pulse Ox 89 L 10/05/23 11:15 O2 Del Method Room Air 10/05/23 11:11 O2 Flow Rate 1.5 10/05/23 10:00 FiO2 25 10/05/23 06:51 Documenting provider has reviewed patient's vital signs: yes Common normals: no apparent distress, oriented x3 and alert HENMT Common normals: normocephalic Eye Common normals: PERRL and EOMs intact bilaterally Respiratory Common normals: normal respiratory effort and clear to auscultation bilaterally Cardio Common normals: regular rate, regular rhythm, no gallops, no murmurs and no rub GI Common normals: Normal to inspection, nondistended, normoactive bowel sounds present and non-tender Extremity Common normals: no pedal edema Progress Note: Objective Labs Labs: Short CBC 10/05/23 Range/Units 04:17 WBC 7.6 (4.0-11.0) 10^3/uL Hgb 13.4 L (14.0-18.0) g/dL Hct 42.1 (42.0-54.0) % Plt Count 182 (150-450) 10^3/uL BMP 10/05/23 04:17 Sodium 140 Potassium 3.7 Chloride 101 Carbon Dioxide 29.4 BUN 13.0 Creatinine 0.82 Glucose 95 Calcium 8.5 Liver Function 10/05/23 Range/Units 04:17 Total Bilirubin 0.7 (0.2-1.0) mg/dL AST 21 (15-37) U/L ALT 27 (16-63) U/L Alkaline Phosphatase 73 (46-116) U/L Albumin 3.4 (3.4-5.0) g/dL Progress Note: A&P Assessment and Plan (1) Acute and chronic respiratory failure with hypercapnia: (2) Acute respiratory failure with hypoxia: (3) Obesity hypoventilation syndrome: (4) Vertigo: (5) SHIRA (obstructive sleep apnea): (6) Type 2 diabetes mellitus with hyperglycemia: (7) Hypertension: Qualifiers: Hypertension type: primary hypertension Qualified Code(s): I10 - Essential (primary) hypertension (8) Morbid obesity: Plan Improved with BiPAP but still hypoxia. Wean O2 as tolerated. Add PEP. Encourage ambulation around room. If not able to wean off oxygen will need walk test to see if qualifies for home O2. Likely will be ready for discharge in am.
[2023-10-05 16:40] LABS: Glucometer 112 mg/dL (74-106)
[2023-10-05 20:31] LABS: Glucometer 130 mg/dL (74-106)
[2023-10-05] MEDS: ATORVASTATIN CALCIUM 40 MG TABLET PO (20:33)
[2023-10-06] VITALS (8 sets, daily range): BP systolic 121; BP diastolic 71; PULSE 50–74; RESP 14–16; TEMP 36.6; O2SAT 90–99
[2023-10-06 05:18] LABS: Basophils Percent Auto 0.4 % (0.2-2.0); Eosinophils Absolute Auto 0.2 10^3/uL (0.0-0.7); Eosinophils Percent Auto 3.1 % (0.9-7.0); Hematocrit 41.8 % (42.0-54.0); Hemoglobin 13.5 g/dL (14.0-18.0); Immature Granulocytes Abs Auto 0.03 10^3/uL (0.00-0.03); Immature Granulocytes Pct Auto 0.4 % (0.0-0.5); Lymphocytes Absolute Auto 1.9 10^3/uL (1.2-3.8); Lymphocytes Percent Auto 25.5 % (20.5-60.0); Mean Corpuscular HGB Conc 32.3 g/dL (29.9-35.2); Mean Corpuscular Hemoglobin 30.7 pg (25.9-34.0); Mean Platelet Volume 10.5 fL (9.5-13.5); Monocytes Absolute Auto 0.6 10^3/uL (0.3-0.8); Monocytes Percent Auto 7.7 % (1.7-12.0); Neutrophils Absolute Auto 4.7 10^3/uL (1.4-6.5); Neutrophils Percent Auto 62.9 % (43.0-75.0); Platelet Count 177 10^3/uL (150-450); Red Cell Distribution Width 13.4 % (11.0-15.0); White Blood Count 7.5 10^3/uL (4.0-11.0)
[2023-10-06 05:39] LABS: Alanine Aminotransferase 22 U/L (16-63); Albumin Globulin Ratio 0.9; Albumin Level 3.2 g/dL (3.4-5.0); Alkaline Phosphatase 72 U/L (46-116); Anion Gap 12.5; Aspartate Amino Transferase 20 U/L (15-37); BUN Creatinine Ratio 20.5; Bilirubin Total 0.4 mg/dL (0.2-1.0); Calcium 8.2 mg/dL (8.5-10.1); Carbon Dioxide 29.1 mmol/L (21.0-32.0); Chloride 103 mmol/L (98-107); Estimated GFR (African America >60 (>=60); Estimated GFR (Non-African Ame >60 (>=60); Globulin 3.5 g/dL; Glucose 110 mg/dL (74-106); Potassium 3.6 mmol/L (3.5-5.1); Sodium 141 mmol/L (136-145); Total Protein 6.7 g/dL (6.4-8.2)
[2023-10-06] MEDS: METOPROLOL SUCCINATE 100 MG TAB.ER.24H PO (09:26)
[2023-10-06] MEDS: ASPIRIN 81 MG TAB.CHEW PO (09:26)
[2023-10-06] MEDS: LISINOPRIL 20 MG TABLET 40 MG PO (09:26)
--- NOTE | 2023-10-06 10:56 | P.DS_ITS ---
DS: Providers Provider Date of admission: 10/04/23 13:30 Primary care physician: Non-Staff Physician, Consults: 10/04/23 11:35 Occupational Therapy Eval and Treat Routine Reason for consultation: Ambulatory dysfunction/weakness Physical Therapy Eval and Treat Routine Reason for consultation: Ambulatory dysfunction/weakness DS: Diagnosis Discharge Diagnosis (1) Acute and chronic respiratory failure with hypercapnia: (2) Acute respiratory failure with hypoxia: (3) Obesity hypoventilation syndrome: (4) Vertigo: (5) SHIRA (obstructive sleep apnea): (6) Type 2 diabetes mellitus with hyperglycemia: (7) Hypertension: Qualifiers: Hypertension type: primary hypertension Qualified Code(s): I10 - Essential (primary) hypertension (8) Morbid obesity: DS: Summary Hospital Course Hospital Course: Reason for admission: See ER note and H&P for details. 58 y/o male to ER with vertigo and fatigue. Patient driving home from work and had sudden onset of vertigo. History of vertigo several years ago and felt similar. Pulled over and brought in by EMS. Glucose [address] head negative. Reports history of SHIRA diagnosed years ago but not on PAP therapy. ABG in ER showed pCO2 60. Noted fatigue and somnolence in ER. Attempted discharge but worsening vertigo and admitted. Hospital course: Started BiPAP and improved. MRI brain normal and A1C 7.2. Noted severe SHIRA while sleeping and patient would stop breathing. SpO2 decreased into the 60s on room air when sleeping. Normal SpO2 when up and awake. Patient ambulating around room. Arranged for nocturnal oxygen at home. Patient discharged home in stable condition. Need to contact PCP for follow up this week and need CPAP titration study as soon as possible so can get home PAP machine. Resume home medication as directed. Time Spent with Patient Time attestation: Total time spent providing and/or coordinating discharge services: Exam Constitutional Vital Signs, click to edit/add: Last Vital Signs Temp 98 F 10/06/23 08:00 Pulse 74 10/06/23 10:00 Resp 16 10/06/23 08:00 BP 121/71 10/06/23 08:00 Pulse Ox 90 L 10/06/23 10:00 O2 Del Method BIPAP 10/06/23 08:00 O2 Flow Rate 0 10/06/23 08:00 FiO2 25 10/06/23 08:00 Documenting provider has reviewed patient's vital signs: yes Common normals: no apparent distress, oriented x3 and alert HENMT Common normals: normocephalic Eye Common normals: PERRL and EOMs intact bilaterally Respiratory Common normals: normal respiratory effort and clear to auscultation bilaterally Cardio Common normals: regular rate, regular rhythm, no gallops, no murmurs and no rub GI Common normals: Normal to inspection, nondistended, normoactive bowel sounds present and non-tender Extremity Common normals: no pedal edema DS: Data Data Completed and Pending Labs on day of discharge: Labs from last 24 hours 10/06/23 10/05/23 10/05/23 04:16 20:29 16:39 WBC 7.5 RBC 4.40 L Hgb 13.5 L Hct 41.8 L MCV 95.0 H MCH 30.7 MCHC 32.3 RDW 13.4 Plt Count 177 MPV 10.5 Neut % (Auto) 62.9 Lymph % (Auto) 25.5 Mineral % (Auto) 7.7 Eos % (Auto) 3.1 Baso % (Auto) 0.4 Neut # (Auto) 4.7 Lymph # (Auto) 1.9 Mineral # (Auto) 0.6 Eos # (Auto) 0.2 Baso # (Auto) 0.0 Abs Immat Gran (auto) 0.03 Imm/Tot Granulo (auto) 0.4 Sodium 141 Potassium 3.6 Chloride 103 Carbon Dioxide 29.1 Anion Gap 12.5 BUN 18.0 Creatinine 0.88 Est GFR ( Amer) >60 Est GFR (Non-Af Amer) >60 BUN/Creatinine Ratio 20.5 Glucose 110 H Calcium 8.2 L Total Bilirubin 0.4 AST 20 ALT 22 Alkaline Phosphatase 72 Total Protein 6.7 Albumin 3.2 L Globulin 3.5 Albumin/Globulin Ratio 0.9 POC Glucose 130 H 112 H Discharge Plan Discharge Disposition: Home, Self-Care Condition: Fair Discharge Medications: New ondansetron 4 mg tablet,disintegrating 4 mg PO Q4H PRN (Reason: nausea and vomiting) 3 Days Qty: 6 0RF meclizine [Antivert] 25 mg tablet,chewable 25 mg PO TID PRN (Reason: dizziness or vertigo) Qty: 7 0RF Continued atorvastatin 40 mg tablet 40 mg PO .qd hydrochlorothiazide 12.5 mg tablet 12.5 mg PO .qd lisinopril 40 mg tablet 40 mg PO .qd metoprolol succinate 100 mg tablet extended release 24 hr 100 mg PO .qd Jardiance 10 mg tablet 10 mg PO .qd aspirin 81 mg capsule 81 mg PO DAILY Activity: resume usual activities as tolerated Activity Detail: Return to work 10/08/2023 Diet: advance to your usual diet Patient Instructions: Meclizine (By mouth) (Antivert, Antivert/25, Antivert/50, Motion..., Ondansetron (By mouth) (Zofran, Zofrreena ODT, Priya), Sleep Apnea (GEN), Using Oxygen at Home (ED), Sleep Study (GEN) Forms: Portal Instructions Referrals: Physician,Non-Staff, MD [Primary Care Provider] - 1 week Follow Up Appointments: Please call Dr Liao office for follow up appointment [facility] [phone]. Patient needs sleep study scheduled [facility]
--- NOTE | 2023-10-07 10:16 | CM.DCFOLLOWU ---
1st attempt discharge follow up call made by Hector Lee on 10/07/2023, called cell phone and home phone, no answer.
--- NOTE | 2023-10-08 15:45 | CM.DCFOLLOWU ---
2nd attempt discharge follow up call made by Hector Lee on 10/08/23, no answer at this time
--- NOTE | 2023-10-09 09:57 | CM.DCFOLLOWU ---
3rd attempt discharge follow up call made by Hector Lee on 10/09/23, no answer.
--- NOTE | 2023-10-11 13:54 | CM.DCFOLLOWU ---
10/11- 2nd attempt no answer
== END 2023-10-06 12:09 | disposition home or self-care (01) ==
LOC: ER 13:29 → MS 13:30 → ICU 18:03
PROVIDERS: Admitting Provider Internal Medicine; Emergency Provider Emergency Medicine; Visit Provider Internal Medicine
DX: J96.22 Acute and chronic respiratory failure with hypercapnia (principal); J96.01 Acute respiratory failure with hypoxia; R42 Dizziness and giddiness; E11.9 Type 2 diabetes mellitus without complications; E66.2 Morbid (severe) obesity with alveolar hypoventilation; I10 Essential (primary) hypertension; E78.00 Pure hypercholesterolemia, unspecified; Z68.42 Body mass index [BMI] 45.0-49.9, adult; F17.210 Nicotine dependence, cigarettes, uncomplicated; Z79.899 Other long term (current) drug therapy; Z79.82 Long term (current) use of aspirin; R79.89 Other specified abnormal findings of blood chemistry; Z99.81 Dependence on supplemental oxygen
CPT/HCPCS: 36415; 36600; 70450; 70551; 71045; 71275; 80053; 80061; 80307; 81001; 82800; 82805; 82948; 83036; 84484; 85025; 85610; 93005; 94660; 94667; 94668; 94761; 94799; 96372; 96376; 97161; 99285; G0378; J0780; J1650; J2405; J3360; Q9967

== ENCOUNTER 2025-01-26 11:28 | Emergency (ER) | payer BC, SELFPAY ==
[2025-01-26 11:38] VITALS: BP 135/91; TEMP 37.1; O2SAT 95; BMI 50.0
--- NOTE | 2025-01-26 11:46 | ED.GENADUL1 ---
HPI HPI - General Adult General Chief complaint: Extremity Injury, Upper Stated complaint: FALL 01/25/25; R LEG PAIN, R ARM PAIN Time Seen by Provider: 01/26/25 11:40 Mode of arrival: walk-in Limitations: no limitations History of Present Illness HPI narrative: 59-year-old male presents for pain in his bicep area. Yesterday he fell through a week board in his deck and scraped his right leg. He is not concerned about that region but it has been more than 10 years since he had a tetanus shot. A half an hour later he was pulling on a heavy item and he felt a popping sensation in his right bicep region. He is able to flex and extend at the elbow and rotate the shoulder without difficulty but he has discomfort in the mid bicep region. Related Data Home Medications ?Medication ?Instructions ?Recorded ?Confirmed aspirin 81 mg capsule 81 mg PO DAILY 10/04/23 10/04/23 atorvastatin 40 mg tablet 40 mg PO .qd 10/04/23 10/04/23 empagliflozin 10 mg tablet 10 mg PO .qd 10/04/23 10/04/23 (Jardiance) hydrochlorothiazide 12.5 mg tablet 12.5 mg PO .qd 10/04/23 10/04/23 lisinopril 40 mg tablet 40 mg PO .qd 10/04/23 10/04/23 metoprolol succinate 100 mg 100 mg PO .qd 10/04/23 10/04/23 tablet,extended release 24 hr Previous Rx's ?Medication ?Instructions ?Recorded meclizine 25 mg chewable tablet 25 mg PO TID PRN dizziness or 10/04/23 (Antivert) vertigo #7 tabs ondansetron 4 mg disintegrating 4 mg PO Q4H PRN nausea and 10/04/23 tablet vomiting 3 days #6 tabs ibuprofen 800 mg tablet 800 mg PO Q8H PRN pain #20 tabs 01/26/25 Allergies Allergy/AdvReac Type Severity Reaction Status Date / Time No Known Drug Allergies Allergy Verified 01/26/25 11:44 Opioid HPI Opioid Management Most Recent Opioid Data: Last Pain Scale 2 10/04/23, 17:17 Last Pain Intensity 2 10/04/23, 17:17 Ur Phencyclidine Scrn, (NEGATIVE) Negative 10/04/23, 09:10 Review of Systems ROS Narrative A ten point review of systems is negative except as noted above. [facility] Medical History (Updated 01/26/25 @ 12:55 by Jose Marte MD) Morbid obesity ?E66.01 - Morbid (severe) obesity due to excess calories (ICD-10) Type 2 diabetes mellitus with hyperglycemia ?E11.65 - Type 2 diabetes mellitus with hyperglycemia (ICD-10) SHIRA (obstructive sleep apnea) ?G47.33 - Obstructive sleep apnea (adult) (pediatric) (ICD-10) Obesity hypoventilation syndrome ?E66.2 - Morbid (severe) obesity with alveolar hypoventilation (ICD-10) Acute respiratory failure with hypoxia ?J96.01 - Acute respiratory failure with hypoxia (ICD-10) Acute and chronic respiratory failure with hypercapnia ?J96.22 - Acute and chronic respiratory failure with hypercapnia (ICD-10) Hypertension ?I10 - Essential (primary) hypertension (ICD-10) Elevated serum creatinine ?R79.89 - Other specified abnormal findings of blood chemistry (ICD-10) Nausea & vomiting ?R11.2 - Nausea with vomiting, unspecified (ICD-10) History of respiratory acidosis ?Z86.39 - Personal history of other endocrine, nutritional and metabolic disease (ICD-10) Sleep apnea-like behavior ?G47.39 - Other sleep apnea (ICD-10) Obesity ?E66.9 - Obesity, unspecified (ICD-10) High cholesterol ?E78.00 - Pure hypercholesterolemia, unspecified (ICD-10) Heart murmur ?R01.1 - Cardiac murmur, unspecified (ICD-10) Diabetes ?E11.9 - Type 2 diabetes mellitus without complications (ICD-10) Family History (Updated 10/04/23 @ 14:04 by Magdalena Rosario) Grandmother Family history of cancer Father Family history of diabetes mellitus Family history of hypertension Mother Family history of diabetes mellitus Family history of hypertension Social History (Updated 10/04/23 @ 14:06 by Magdalena Rosario) Within the past year, how often did you have a drink containing alcohol: never Within the past year, how often did you have six or more drinks on one occasion: never Score interpretation: A score less than 4 is consistent with normal alcohol consumption. 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 Highest level of school completed/degree received: high school graduate Are you now , , , , never or living with a partner: In a typical week, how many times do you talk on the telephone with family, friends, or neighbors: 3 or more times per week How often do you get together with friends or relatives: twice per week How often do you attend latter-day or lutheran services: never Do you belong to any clubs or organizations such as latter-day groups unions, fraternal or athletic groups, or school groups: no Total score: 2 Score interpretation: A score of greater than or equal to 2 indicates the lowest level of social isolation. Little interest or pleasure in doing things: not at all Feeling down, depressed, or hopeless: not at all Exam Narrative Exam Narrative: Nurses note and vital signs reviewed and patient is not hypoxic. General: The patient appears well and in no apparent distress. Patient is resting comfortably on cart. Skin: Warm, dry, no pallor noted. There is no rash noted. Head: Normocephalic, atraumatic Eye: Normal conjunctiva, no drainage Ears, Nose, Mouth, and Throat: oral mucosa is moist. Nares patent. Cardiovascular: Regular Rate and Rhythm Respiratory: Patient is in no distress, no accessory muscle use, lungs are clear to auscultation, no wheezing, rales or rhonchi Back: non-tender GI: Soft and nontender Musculoskeletal: He has abrasions on the right lower leg and just above the knee as well. The right bicep area has no bruising. He has palpable tenderness in the mid bicep region. He does not have tenderness at the bicep tendon which appears to be intact. He is able to flex at the elbow without difficulty. He is able to rotate his shoulder without difficulty. Radial pulse 2+. Neurological: A&O, normal speech Psychiatric: Cooperative Constitutional Vital Signs, click to edit/add: Last Vital Signs Temp 98.7 F 01/26/25 11:38 Resp 18 01/26/25 11:38 BP 135/91 01/26/25 11:38 Pulse Ox 95 01/26/25 11:38 O2 Del Method Room Air 01/26/25 11:38 Course Vital Signs Vital signs: Vital Signs Temperature 98.7 F 01/26/25 11:38 Respiratory Rate 18 01/26/25 11:38 Blood Pressure 135/91 05/13/25 11:38 Pulse Oximetry 95 01/26/25 11:38 Oxygen Delivery Method Room Air 01/26/25 11:38 Temperature 98.7 F 01/26/25 11:38 Respiratory Rate 18 01/26/25 11:38 Blood Pressure 135/91 01/26/25 11:38 Pulse Oximetry 95 01/26/25 11:38 Oxygen Delivery Method Room Air 01/26/25 11:38 Medical Decision Making MDM Narrative Medical decision making narrative: X-ray on my interpretation shows no acute findings. Sling applied, application checked by me and found to be appropriate, he is neurovascular intact. He was referred to orthopedics for follow-up and given a work note. Treatment diagnosis and follow-up were discussed with the patient and his . I have no clinical suspicion of bicep tendon rupture Differential Diagnosis Differential Diagnosis: Muscle strain, bicep tendon injury Imaging Data Right humerus: My impression: No acute findings Discharge Plan Discharge Chief Complaint: Extremity Injury, Upper Clinical Impression: Strain of right biceps muscle Patient Disposition: Home, Self-Care Time of Disposition Decision: 12:55 Condition: Good Mode of Transportation: Private Vehicle Prescriptions / Home Meds: New ibuprofen 800 mg tablet 800 mg PO Q8H PRN (Reason: pain) Qty: 20 0RF No Action ondansetron 4 mg tablet,disintegrating 4 mg PO Q4H PRN (Reason: nausea and vomiting) 3 Days Qty: 6 0RF meclizine [Antivert] 25 mg tablet,chewable 25 mg PO TID PRN (Reason: dizziness or vertigo) Qty: 7 0RF atorvastatin 40 mg tablet 40 mg PO .qd hydrochlorothiazide 12.5 mg tablet 12.5 mg PO .qd lisinopril 40 mg tablet 40 mg PO .qd metoprolol succinate 100 mg tablet extended release 24 hr 100 mg PO .qd Jardiance 10 mg tablet 10 mg PO .qd aspirin 81 mg capsule 81 mg PO DAILY Print Language: [place] Instructions: Muscle Strain (ED), How to Use a Sling (ED) Referrals: Maryanne Liao DO [Primary Care Provider] - 1 week Cory Islas MD [Physician, Orthopedics] - 1 week
--- OUTSIDE RECORDS SUMMARY | 2025-01-26 11:58 | XMS_ITS | CCD ---
Author Organization [facility] Care Team Providers Care Industrial Gas Fitter Name Role Phone Maryanne Liao Primary Care Physician [phone] Darren Kaur Attending Unavailable Gi Bruce Attending Unavailable Wilbert Centeno Admitting Wilbert Teixeira Attending Maryanne Landaverde Referring Unavailable NONE, XXXX Referring Unavailable Sun MCGOVERN Admitting Unavailable Sun MCGOVERN Attending Unavailable Wilbert Centeno Referring Wilbert Teixeira Admitting UnavailWilbert Love Attending MD Anuel [employer] Consult[employer] Anuel Cunningham Consulting Anuel Cunningham Consulting Unavailable DO Maryanne Liao Primary Care Provider DO Maryanne Liao Referring Provider MD Harman Bennett Attending Provider [phone] Harman Bennett Unavailable Maryanne Liao Referring Unavailable Harman Bennett Admitting Unavailable Harman Bennett Attending Unavailable Maryanne Liao Primary Care Unavailable Harman Bennett Admitting Unavailable Harman Bennett Attending Unavailable Maryanne Liao Primary Care Unavailable Medications Current Medications Medication Drug Class(es) Dates Sig (Normalized) Sig (Original) atorvastatin 40 mg oral tablet (5 sources) HMG-CoA Reductase Inhibitor Start: 06-12-2021 take 1 tablet by mouth once daily atorvastatin 40 mg Tab 40 mg = 1 tab(s), Oral, Daily, # 90 tab(s), Refills(s) 0 Start Date: 06/12/21 Status: Ordered Jardiance (4 sources) Sodium-Glucose Cotransporter 2 Inhibitor Start: 01-25-2023 Jardiance Refills(s) 0 Start Date: 01/25/23 Status: Ordered take 1 tablet by mouth once ximena y Jardiance 10 MG TAKE 1 TABLET BY MOUTH EVERY DAY Oral for 30 Days Active hydroCHLOROthiazide 12.5 mg oral tablet (4 sources) Thiazide Diuretic Start: 01-25-2023 take 1 tablet by mouth once daily hydrochlorothiazide 12.5 mg Tab 12.5 mg = 1 tab(s), Oral, Daily, # 90 tab(s), Refills(s) 1, [id number] 170, cm, 01/25/23 10:08:00 EDT, Height/Length Dosing, 146, kg, 01/25/23 10:08:00 EDT, Weight Dosing Start Date: 01/25/23 Status: Ordered hydroCHLOROthiazide 12.5 mg / irbesartan 150 mg oral tablet (1 source) Thiazide Diuretic, Angiotensin 2 Receptor West Start: 06-12-2021 hydrochlorothiazide-ir besartan 12.5 mg-150 mg Tab 1 tab(s), Oral, Daily, 30 tab(s), Refill(s) 0 Start Date: 06/12/21 Status: Ordered lisinopril 40 mg oral tablet (5 sources) Angiotensin Converting Enzyme Inhibitor Start: 10-19-2020 take 1 tablet by mouth once daily lisinopril 40 mg Tab 40 mg = 1 tab(s), Oral, Daily, # 30 tab(s), Refills(s) 0, [id number], 170, cm, 06/07/20 8:23:00 EDT, Height/Length Dosing, 158.2, kg, 06/07/20 8:23:00 EDT, Weight Dosing Start Date: 10/19/20 Status: Ordered metFORMIN hydrochloride 500 mg oral tablet (4 sources) Biguanide Start: 06-12-2021 take 1 tablet by mouth twice daily metformin 500 mg oral tablet 500 mg = 1 tab(s), Oral, BID, # 60 tab(s), Refills(s) 0 Start Date: 06/12/21 Status: Ordered 24 hr metoprolol succinate 100 mg extended release oral tablet (5 sources) beta-Adrenergic West Start: 10-19-2020 take 1 tablet by mouth once daily metoprolol 100 mg ER Tab 100 mg = 1 tab(s), Oral, Daily, # 30 tab(s), Refills(s) 0, Pharmacy: [facility] #[id number], 170, cm, 06/07/20 8:23:00 EDT, Height/Length Dosing, 158.2, kg, 06/07/20 8:23:00 EDT, Weight Dosing Start Date: 10/19/20 Status: Ordered ondansetron 4 mg disintegrating oral tablet (1 source) Serotonin-3 Receptor Antagonist Ondansetron 4 MG Ora l for 1 Days Active polymyxin b 11836 unt/ml / trimethoprim 1 mg/ml ophthalmic solution (2 sources) Dihydrofolate Reductase Inhibitor Antibacterial, Polymyxin-class Antibacterial Start: 07-16-2023 End: 07-26-2023 polymyxin B-trimethoprim Opth Saranya 1 drop(s), OPTH, q3hr for 10 day(s), 10 mL, Refill(s) 0, [facility] #[id number], 170, cm, 07/16/23 12:05:00 EDT, Height/Length Dosing, 145, kg, 07/16/23 12:05:00 EDT, Weight Dosing Start Date: 07/16/23 Stop Date: 07/26/23 Status: Ordered tobramycin 3 mg/ml ophthalmic solution (1 source) Aminoglycoside Antibacterial Start: 07-19-2023 End: 07-26-2023 tobramycin Opth 0.3% Saranya 1 drop(s), OPTH, QID for 7 day(s), 5 mL, Refill(s) 0, [facility] #[id number], 170, cm, 07/19/23 15:20:00 EDT, Height/Length Dosing, 145, kg, 07/19/23 15:20:00 EDT, Weight Dosing Start Date: 07/19/23 Stop Date: 07/26/23 Status: Ordered Problems Active Problems Problem Classification Problem Date Documented Date Episodic/Chronic Abdominal hernia (4 sources) Umbilical hernia 03-01-2020 Episodic Diabetes mellitus without complication (4 sources) Diabetes mellitus 06-12-2021 Chronic Diabetes mellitus without complication (4 sources) Hyperglycemia 02-29-2020 Episodic Disorders of lipid metabolism (9 sources) Hyperlipidemia; Translations: [Mixed hyperlipidemia] Onset: 3 06-12-2021 Chronic Essential hypertension (15 sources) Benign essential hypertension; Translations: [Hypertensive disorder] Onset: 3 10-31-2019 Chronic Heart valve disorders (1 source) Aortic stenosis, non-rheumatic ; Translations: [Nonrheumatic aortic (valve) stenosis] Onset: 3 Chronic Heart valve disorders (4 sources) Systolic murmur 03-01-2020 Episodic Inflammation; infection of eye (except that caused by tuberculosis or sexually transmitteddisease) (2 sources) Conjunctivitis; Translations: [Unspecified conjunctivitis] Onset: 3 Episodic Other ear and sense organ disorders (4 sources) Bilateral hearing loss 03-01-2020 Chronic Other lower respiratory disease (1 source) Personal history of other diseases of the respiratory system Episodic Other nervous system disorders (1 source) Circadian rhythm sleep disorder of shift work type; Translations: [Circadian rhythm sleep disorder, shift work type] Chronic Other nervous system disorders (1 source) Circadian rhythm sleep disorder, shift work type Chronic Other nervous system disorders (4 sources) H/O: eye disorder 11-13-2020 Episodic Other nutritional; endocrine; and metabolic disorders (5 sources) Body mass index 40+ - severely obese; Translations: [Body mass index (BMI) 45.0-49.9, adult] 03-01-2020 Chronic Other nutritional; endocrine; and metabolic disorders (4 sources) Morbid obesity 06-12-2021 Chronic Other nutritional; endocrine; and metabolic disorders (4 sources) Severe obesity 06-24-2020 Chronic Other nutritional; endocrine; and metabolic disorders (1 source) Obesity; Translations: [Obesity, unspecified] Onset: 3 Chronic Other nutritional; endocrine; and metabolic disorders (1 source) Alveolar hypoventilation; Translations: [Morbid (severe) obesity with alveolar hypoventilation] Chronic Other nutritional; endocrine; and metabolic disorders (1 source) Morbid (severe) obesity with alveolar hypoventilation Chronic Other nutritional; endocrine; and metabolic disorders (1 source) Body mass index (BMI) 45.0-49.9, adult Chronic Other nutritional; endocrine; and metabolic disorders (4 sources) History of hypercholesterolemia 11-19-2014 Episodic Residual codes; unclassified (1 source) Sleep apnea; Translations: [Sleep apnea, unspecified] Chronic Residual codes; unclassified (1 source) Hypoxia; Translations: [Idiopathic sleep related nonobstructive alveolar hypoventilation] Chronic Residual codes; unclassified (2 sources) Sleep apnea, unspecified; Translations: [Sleep apnea, unspecified] Onset: 4 Chronic Residual codes; unclassified (1 source) Idiopathic sleep related nonobstructive alveolar hypoventilation Chronic Residual codes; unclassified (1 source) Obstructive sleep apnea (adult)(pediatric); Translations: [Obstructive sleep apnea (adult) (pediatric)] Onset: 4 Chronic Retinal detachments; defects; vascular occlusion; and retinopathy (4 sources) 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 hasnt seemed to improve History of Present Illness A 58-year-old male reports to the emergency department with chief complaint of bilateral pinkeye. He reports that is not gotten any better. He states that he noticed that did improve, now is worsening. Denies any contact use. Denies any pain, just still having drainage from both of his eyes. States he does not have an eye doctor. Wanted to get reevaluated for further evaluation. Review of Systems A 10 point review of systems is negative except as noted above. Medical and Surgical History: Reviewed and noted Social history: Lives at home Family History: Reviewed. Tobacco: Denies Physical Exam Vitals & Measurements T: 36.7 ?C(Oral) HR: 61(Peripheral) RR: 16 BP: 189/102 SpO2: 98% HT: 170 cm WT: 145 kg BMI: 50.17 General: The patient appears well and in no apparent distress. Patient is resting comfortably on bed. Skin: Warm, dry, no pallor noted. Head: Normocephalic, atraumatic Neck: No JVD Eye: PERRLA, EOMI ENT: Moist mucus membranes. Bilateral conjunctiva is erythematous, with purulent discharge noted. No foreign bodies identified. Cardiovascular: Regular rate normal peripheral perfusion Respiratory: No respiratory distress no accessory muscle use no obvious audible wheezing Chest Wall: no deformity Musculoskeletal: normal ROM, no deformity, no swelling GI: No obvious distention Neurological: A&O moves all extremities equal strength and symmetry Psychiatric: Cooperative and appropriate Medical Decision Making MEDICAL DECISION MAKING Number and Complexity of Problems Differential Diagnosis: [] [facility] Data External documents reviewed: [] My EKG interpretation: [] My CT interpretation: [] My X-ray interpretation: [] My Ultrasound interpretation: [] Decision rules/scores evaluated: [] Discussed with: [] Treatment and Disposition ED Course: 58-year-old male reports to the emergency department chief complaint of bilateral eye conjunctivitis. Reports been going on since Saturday, has been on antibiotic drops, but, but is not improving. States that he is not have any changes, he has noticed some relief, but when to get reevaluated. Physical exam reveals bilateral conjunctivitis of the eyes. There is drainage noted, as well as inflamed conjunctiva. Due to patient's concerns, I discussed that he stop the Polytrim, will start be on tobramycin instead. Discussed that this could be viral, which is why the eyedrops are not working. Patient was understanding of this. Discussed return precautions. Discussed following up with eye doctor. Follow-up with your primary care provider in 3 to 5 days. If symptoms worsen, do not improve, or new symptoms arise please report back to emergency department for further evaluation. The patient was understanding and agreeable to plan moving forward. Shared decision making: [] Code status: [] Assessment/Plan Bilateral conjunctivitis (H10.9: Unspecified conjunctivitis) Orders: tobramycin ophthalmic, 1 drop(s), OPTH, QID for 7 day(s), 5 mL, Refill(s) 0, [id number], 170, cm, 07/19/23 15:20:00 EDT, Height/Length Dosing, 145, kg, 07/19/23 15:20:00 EDT, Weight Dosing Disposition Plan Patient Discharge Condition Stable Discharge Disposition To home Discharge Prescription List Prescriptions tobramycin Opth 0.3% Saranya, 1 drop(s), OPTH, QID Follow-up With When Contact Information Rangel Huang In 3 days 07/22/2023 EST [facility] [address], [address] [place] [address]- Business (1) Additional Instructions: Follow-up with your eye doctor if this does not improve. If symptoms if you not have an eye doctor, you may follow-up with Dr. Sal Liao In 3 days 07/22/2023 EST [address], [address] [place] [address]- Business (1) Additional Instructions: Follow-up with your primary care provider in 3 to 5 days. If symptoms worsen, do not improve, or new symptoms arise please report back to emergency department for further evaluation. Patient Education Bacterial Conjunctivitis, Adult, Tdph-nw-Gegl Attestation Patient seen and evaluated by the physician resident programs assistant. Attending physician was present in the emergency department and supervised care. This visit was performed by both the physician and an APC. I performed all aspects of the MDM as documented. This report was transcribed using voice recognition software. Every effort was made to ensure accuracy, however, inadvertently computerized grain elevator worker mistakes may be present. Appropriate healthcare PPE was used in evaluating this patient. The patient was placed in a mask. The healthcare provider was wearing mask, gloves, and utilizing proper hand hygiene. All equipment was properly cleansed. Problem List/Past Medical History Ongoing Benign e (more content not included)... [facility] Comment on above: Result Comment: Elec tronically Signed By: Ismael Gonzales PA-C\.br\Date and Time Signed: 07/19/23 17:44 EDT\.br\Electronically Co-Signed By: Darren Kaur MD\.br\Date and Time Co-Signed: 07/20/23 07:17 EDT Consent for Treatmenton Consent for Treatment [id number] [facility] Discharge Instructionson Discharge Instructions [id number] Normal [facility] ED Clinical Summaryon 2022 ED Clinical Summary (Inserted Image. Sharron ble to display) [address] [address] ED Clinical Summary Person Information Name: ZEYNEP HARRELL [facility] Age: 58 Years : 1965 Sex: Male Language: Lebanese PCP: Maryanne Liao DO Marital Status: Phone: [phone] Visit Id: Visit Reason: Eye reevaluation; RED EYE Speciality: Acuity: 4 Enc Type: Emergency Med Service: Emergency Arrival: 07/19/2023 15:10:09 Discharge: 07/19/2023 15:52:47 LOS: 000 00:42 Checkin: 07/19/2023 15:10:09 Checkout: 07/19/2023 15:52:47 Dispo Type: Home (Routine DC) EVENTS: Event Name Event Status Request Date/Time Start Date/Time Complete Date/Time Arrive Complete 07/19/2023 15:10:09 07/19/2023 15:10:09 07/19/2023 15:10:09 Document Home Meds Request 07/19/2023 15:10:09 Triage Complete 07/19/2023 15:10:09 07/19/2023 15:20:41 07/19/2023 15:20:41 Registration Complete 07/19/2023 15:13:19 07/19/2023 15:13:19 07/19/2023 15:13:19 Reg Complete Request 07/19/2023 15:13:19 Reg Bed Request Complete 07/19/2023 15:13:19 07/19/2023 15:13:19 07/19/2023 15:13:19 Bed Assign Complete 07/19/2023 15:17:41 07/19/2023 15:17:41 07/19/2023 15:17:41 Dr Exam Complete 07/19/2023 15:17:41 07/19/2023 15:23:46 07/19/2023 15:23:46 RN Exam Complete 07/19/2023 15:17:41 07/19/2023 15:52:17 07/19/2023 15:52:17 Registration Request 07/19/2023 15:23:46 Discharge Complete 07/19/2023 15:43:36 07/19/2023 15:52:58 07/19/2023 15:52:58 Transfer Complete 07/19/2023 15:52:58 07/19/2023 15:52:58 07/19/2023 15:52:58 ADDRESS: [address] [place] [phone] PHYS DOC NOTES: MEDICAL INFORMATION: Prescriptions Given: New Medications [facility] #[id number], [address] [place], [place] [id number], [phone] tobramycin ophthalmic (tobramycin Opth 0.3% Saranya) 1 Drops Ophthalmic 4 times a day for 7 Days. Refills: 0. Medications to Continue with No Changes Other Medications atorvastatin (atorvastatin 40 mg Tab) 1 Tablets By Mouth every day. empagliflozin (Jardiance) hydrochlorothiazide (hydrochlorothiazide 12.5 mg Tab) 1 Tablets By Mouth every day. Refills: 1. lisinopril (lisinopril 40 mg Tab) 1 Tablets By Mouth every day. Refills: 0. metformin (metformin 500 mg oral tablet) 1 Tablets By Mouth 2 times a day. metoprolol (metoprolol 100 mg ER Tab) 1 Tablets By Mouth every day. Refills: 0. polymyxin B-trimethoprim ophthalmic (polymyxin B-trimethoprim Opth Saranya) 1 Drops Ophthalmic every 3 hours for 10 Days. Refills: 0. PATIENT EDUCATION INFORMATION: Instructions: Bacterial Conjunctivitis, Adult, Mjog-pe-Lalx Follow up: With: Address: When: Rangel Huang [facility] [address], [address], [address] [place] [address] Business (1) In 3 days 07/22/2023 Comments: Follow-up with your eye doctor if this does not improve. If symptoms if you not have an eye doctor, you may follow-up with Dr. Huang With: Address: When: Maryanne Liao [address] [place] [address] Business (1) In 3 days 07/22/2023 Comments: Follow-up with your primary care provider in 3 to 5 days. If symptoms worsen, do not improve, or new symptoms arise please report back to emergency department for further evaluation. DIAGNOSIS: Bilateral conjunctivitis Normal [facility] ED Patient Education Noteon 07-19-2023 ED Patient Education Note Infectious Disease Bacterial Conjunctivitis, Adult Bacterial conjunctivitis is an infection of your conjunctiva. This is the clear membrane that covers the white part of your eye and the inner part of your eyelid. This infection can make your eye: ? Red or pink. ? Itchy or irritated. This condition spreads easily from person to person (is contagious) and from one eye to the other eye. What are the causes? This condition is caused by germs (bacteria). You may get the infection if you come into close contact with: ? A person who has the infection. ? Items that have germs on them (are contaminated), such as face towels, contact lens solution, or eye makeup. What increases the risk? You are more likely to get this condition if: ? You have contact with people who have the infection. ? You wear contact lenses. ? You have a sinus infection. ? You have had a recent eye injury or surgery. ? You have a weak body defense system (immune system). ? You have dry eyes. What are the signs or symptoms? ? Thick, yellowish discharge from the eye. ? Tearing or watery eyes. ? Itchy eyes. ? Burning feeling in your eyes. ? Eye redness. ? Swollen eyelids. ? Blurred vision. How is this treated? ? Antibiotic eye drops or ointment. ? Antibiotic medicine taken by mouth. This is used for infections that do not get better with drops or ointment or that last more than 10 days. ? Cool, wet cloths placed on the eyes. ? Artificial tears used 2?6 times a day. Follow these instructions at home: Medicines ? Take or apply your antibiotic medicine as told by your doctor. Do not stop using it even if you start to feel better. ? Take or apply awka-was-wkyyoon and prescription medicines only as told by your doctor. ? Do not touch your eyelid with the eye-drop bottle or the ointment tube. Managing discomfort ? Wipe any fluid from your eye with a warm, wet washcloth or a cotton ball. ? Place a clean, cool, wet cloth on your eye. Do this for 10?20 minutes, 3?4 times a day. General instructions ? Do not wear contacts until the infection is gone. Wear glasses until your doctor says it is okay to wear contacts again. ? Do not wear eye makeup until the infection is gone. Throw away old eye makeup. ? Change or wash your pillowcase every day. ? Do not share towels or washcloths. ? Wash your hands often with soap and water for at least 20 seconds and especially before touching your face or eyes. Use paper towels to dry your hands. ? Do not touch or rub your eyes. ? Do not drive or use heavy machinery if your vision is blurred. Contact a doctor if: ? You have a fever. ? You do not get better after 10 days. Get help right away if: ? You have a fever and your symptoms get worse all of a sudden. ? You have very bad pain when you move your eye. ? Your face: ? Hurts. ? Is red. ? Is swollen. ? You have sudden loss of vision. Summary ? Bacterial conjunctivitis is an infection of your conjunctiva. ? This infection spreads easily from person to person. ? Wash your hands often with soap and water for at least 20 seconds and especially before touching your face or eyes. Use paper towels to dry your hands. ? Take or apply your antibiotic medicine as told by your doctor. ? Contact a doctor if you have a fever or you do not get better after 10 days. This information is not intended to replace advice given to you by your health care provider. Make sure you discuss any questions you have with your health care provider. Document Revised: 12/13/2021 Document Reviewed: 12/13/2021 Elsevier Patient Education ? 2022 [employer] [facility] ED Patient Summaryon 023 ED Patient Summary (Inserted Image. Sharron ble to display) [address] [address] Patient Discharge Instructions Person Information Name: ZEYNEP HARRELL Age: 58 Years Arrival Date: 07/19/2023 15:10:09 Discharge Diagnosis: Bilateral conjunctivitis Primary Care Physician: Maryanne Liao DO Provider Information Primary Provider: Advanced Die Maker Trim:None The exam and treatment you received in the Emergency Department were for an urgent problem and are not intended as complete care. It is important that you follow up with a doctor, nurse practitioner, or physician?s resident programs assistant for ongoing care. If your symptoms become worse or you do not improve as expected and you are unable to reach your usual health care provider, you should return to the Emergency Department. We are available 24 hours a day. ZEYNEP HARRELL has been given the following list of patient education materials, prescriptions and follow-up instructions: Follow-up Instructions: With: Address: When: Rangel Huang [facility] [address], [address] [facility], [facility] [address] [place] [address] Business (1) In 3 days 07/22/2023 Comments: Follow-up with your eye doctor if this does not improve. If symptoms if you not have an eye doctor, you may follow-up with Dr. Huang With: Address: When: Maryanne Liao [address] [place] [address] Business (1) In 3 days 07/22/2023 Comments: Follow-up with your primary care provider in 3 to 5 days. If symptoms worsen, do not improve, or new symptoms arise please report back to emergency department for further evaluation. In the event that this physician does not participate in your insurance network, please consult with your insurance company to find a nearby participating provider. Patient Education Materials: Bacterial Conjunctivitis, Adult, Xzok-wl-Crol A MESSAGE TO ALL PATIENTS REGARDING OPIOIDS PRESCRIPTION OPIOIDS: WHAT YOU NEED TO KNOW Prescription opioids can be used to help relieve etmaabbu-do-wpvdhd pain and are often prescribed following a surgery or injury, or for certain health conditions. These medications can be an important part of the treatment but also come with serious risks. It is important to work with your healthcare provider to make sure you are getting the safest, most effective care. WHAT ARE THE RISKS AND SIDE EFFECTS OF OPIOID USE? Prescription opioids carry serious risks of addiction and overdose, especially with prolonged use. An opioid overdose, often marked by slowed breathing, can cause sudden . The use of prescription opioids can have a number of side effects as well, even when taken as directed: ? Tolerance?meaning you might need to take more of the medication for the same pain relief ? Physical dependence?meaning you have symptoms of withdrawal when a medication is stopped ? Increased sensitivity to pain ? Constipation ? Nausea, vomiting, and dry mouth ? Sleepiness and dizziness ? Confusion ? Depression ? Low levels of testosterone that can result in lower sex drive, energy, and strength ? Itching and sweating RISKS ARE GREATER WITH: ? History of drug misuse, substance use disorder, or overdose ? Mental health conditions (such as depression or anxiety) ? Sleep apnea ? Older age (65 years and older) ? Avoid alcohol while taking prescription opioids. Also, unless specifically advised by your health care provider, medications to avoid include: ? Benzodiazepines (such as Xanax or Valium) ? Muscle relaxants (such as Soma or Flexeril) ? Hypnotics (such as Ambien or Lunesta) ? Other prescription opioids KNOW YOUR OPTIONS Talk to your health care provider about ways to manage your pain that don?t involve prescription opioids. Some of these options may actually work better and have fewer risks and side effects. Options may include: ? Pain relievers such as acetaminophen, ibuprofen, and naproxen ? Some medication that are also used for depression or seizures ? Physical therapy and exercise ? Cognitive behavioral therapy, a psychological, goal-directed approach, in which patients learn how to modify physical, behavioral, and emotional triggers of pain and stress. IF YOU ARE PRESCRIBED OPIOIDS FOR PAIN: ? Never take opioids in greater amounts or more often than prescribed. ? Follow up with your primary health care provider. o Work together to create a plan on how to manage your pain. o Talk about ways to help manage your pain that don?t involve prescription opioids. o Talk about any and all concerns and side effects. ? Help prevent misuse and abuse o Never sell or share prescription opioids. o Never use another person?s prescription opioids. ? Store prescription opioids in a secure place and out of reach of others (this may include visitors, children, friends, and family). ? Safely dispose of unused (more content not included)... [facility] Prescriptions/Work Noteson 1 09-18-2022 Prescriptions/Work Notes [id number] [facility] Consent for Treatmenton 10-3 -2023 Consent for Treatment [id number] [facility] Discharge Instructionson Discharge Instructions [id number] [facility] ED Clinical Summaryon 2022 ED Clinical Summary (Inserted Image. Sharron ble to display) [place] [id number] ED Clinical Summary Person Information Name: ZEYNEP HARRELL [facility] Age: 58 Years : 1965 Sex: Male Language: Lebanese PCP: Maryanne Liao DO Marital Status: Phone: [phone] Visit Id: Visit Reason: Eye pain; Eye drainage; BILAT EYE DRAINAGE Speciality: Acuity: 4 Enc Type: Emergency Med Service: Emergency Arrival: 07/16/2023 11:54:15 Discharge: 07/16/2023 12:19:27 LOS: 000 00:25 Checkin: 07/16/2023 11:54:15 Checkout: 07/16/2023 12:19:27 Dispo Type: Home (Routine DC) EVENTS: Event Name Event Status Request Date/Time Start Date/Time Complete Date/Time Arrive Complete 07/16/2023 11:54:15 07/16/2023 11:54:15 07/16/2023 11:54:15 Document Home Meds Request 07/16/2023 11:54:15 Triage Complete 07/16/2023 11:54:15 07/16/2023 12:05:37 07/16/2023 12:05:37 Bed Assign Complete 07/16/2023 11:59:38 07/16/2023 11:59:38 07/16/2023 11:59:38 Dr Exam Complete 07/16/2023 11:59:38 07/16/2023 12:01:39 07/16/2023 12:01:39 RN Exam Complete 07/16/2023 11:59:38 07/16/2023 12:07:57 07/16/2023 12:07:57 Registration Complete 07/16/2023 12:01:39 07/16/2023 12:11:16 07/16/2023 12:11:16 Dr Exam Complete 07/16/2023 12:04:03 07/16/2023 12:04:03 07/16/2023 12:04:03 Reg Complete Request 07/16/2023 12:11:16 Reg Bed Request Complete 07/16/2023 12:11:16 07/16/2023 12:11:16 07/16/2023 12:11:16 Discharge Complete 07/16/2023 12:13:37 07/16/2023 12:19:33 07/16/2023 12:19:33 Transfer Complete 07/16/2023 12:19:33 07/16/2023 12:19:33 07/16/2023 12:19:33 ADDRESS: [address] [place] [id number] PHYS DOC NOTES: MEDICAL INFORMATION: Prescriptions Given: New Medications [facility] #[id number], [address] [place], [place] [id number], [phone] polymyxin B-trimethoprim ophthalmic (polymyxin B-trimethoprim Opth Saranya) 1 Drops Ophthalmic every 3 hours for 10 Days. Refills: 0. Medications to Continue with No Changes Other Medications atorvastatin (atorvastatin 40 mg Tab) 1 Tablets By Mouth every day. empagliflozin (Jardiance) hydrochlorothiazide (hydrochlorothiazide 12.5 mg Tab) 1 Tablets By Mouth every day. Refills: 1. lisinopril (lisinopril 40 mg Tab) 1 Tablets By Mouth every day. Refills: 0. metformin (metformin 500 mg oral tablet) 1 Tablets By Mouth 2 times a day. metoprolol (metoprolol 100 mg ER Tab) 1 Tablets By Mouth every day. Refills: 0. PATIENT EDUCATION INFORMATION: Instructions: Viral Conjunctivitis, Adult; Bacterial Conjunctivitis, Adult Follow up: With: Address: When: [address] [place] [address] Business (1) In 3 days 07/19/2023 Comments: Follow-up with your primary care provider in 3 to 5 days. If symptoms worsen, do not improve, or new symptoms arise please report back to emergency department for further evaluation. DIAGNOSIS: Bilateral conjunctivitis [facility] ED Note-Physicianon 07-16-20 ED Note-Physician Basic Information Time Seen: Nic Gonzales PA-Ci Ernestina. 07/16/2023 12:01 Chief Complaint Pt. came here d/tcomplaints of bilateral eye drainage that is red and itchy, said his grand daughter had been dx with pink eye. History of Present Illness A 58-year-old male reports to the emergency department with a chief complaint of bilateral eye drainage. Reports that it is red and itchy. Reports that started yesterday, has slowly been worsening. Denies any contact use. He reports that his granddaughter had been recently diagnosed with pinkeye, now he believes that he has the same thing. Denies any other symptoms. Denies any visual changes. Reports that it is more irritating. Would like to get eyedrops for this. Denies any eye pain with this. Review of Systems A 10 point review of systems is negative except as noted above. Medical and Surgical History: Reviewed and noted Social history: Lives at home Family History: Reviewed. Tobacco: Denies Physical Exam Vitals & Measurements T: 36.2 ?C(Tympanic) HR: 92(Peripheral) RR: 18 BP: 144/99 SpO2: 93% HT: 170 cm WT: 145 kg BMI: 50.17 General: The patient appears well and in no apparent distress. Patient is resting comfortably in chair. Afebrile Skin: Warm, dry, no pallor noted. Head: Normocephalic, atraumatic Neck: No JVD Eye: PERRLA, EOMI. Bilateral conjunctiva is erythematous, with purulent discharge noted. No foreign bodies identified. ENT: Moist mucus membranes. Cardiovascular: Regular rate normal peripheral perfusion. Radial pulses +2 bilaterally Respiratory: No respiratory distress no accessory muscle use no obvious audible wheezing. Chest Wall: no deformity Musculoskeletal: normal ROM, no deformity, no swelling GI: No obvious distention soft nontender nondistended no guarding rebounding or rigidity Neurological: A&O moves all extremities equal strength and symmetry Psychiatric: Cooperative and appropriate Medical Decision Making MEDICAL DECISION MAKING Number and Complexity of Problems Differential Diagnosis: [] [facility] Data External documents reviewed: [] My EKG interpretation: [] My CT interpretation: [] My X-ray interpretation: [] My Ultrasound interpretation: [] Decision rules/scores evaluated: [] Discussed with: [] Treatment and Disposition ED Course: 58-year-old male reports emergency department with chief complaint of bilateral conjunctivitis. Reports that this started yesterday. He reports that his granddaughter also had this, believes that he has not. On physical exam, he does have purulent drainage from both eyes as well as erythematous conjunctiva no other foreign bodies noted. Patient does not wear contacts. Due to patient's. Bilateral conjunctivitis, will treat as bacterial, and patient will be started on Polytrim. Discussed return precautions. Follow-up with your primary care provider in 3 to 5 days. If symptoms worsen, do not improve, or new symptoms arise please report back to emergency department for further evaluation. The patient was understanding and agreeable to plan moving forward. Shared decision making: [] Code status: [] Assessment/Plan Bilateral conjunctivitis (H10.9: Unspecified conjunctivitis) Orders: polymyxin B-trimethoprim ophthalmic, 1 drop(s), OPTH, q3hr for 10 day(s), 10 mL, Refill(s) 0, [id number], 170, cm, 07/16/23 12:05:00 EDT, Height/Length Dosing, 145, kg, 07/16/23 12:05:00 EDT, Weight Dosing Disposition Plan Patient Discharge Condition Stable Discharge Disposition To home Discharge Prescription List Prescriptions polymyxin B-trimethoprim Opth Saranya, 1 drop(s), OPTH, q3hr Follow-up With When Contact Information Maryanne Yanni In 3 days 07/19/2023 EDT [address], [address] [place] [address]- Business (1) Additional Instructions: Follow-up with your primary care provider in 3 to 5 days. If symptoms worsen, do not improve, or new symptoms arise please report back to emergency department for further evaluation. Patient Education Viral Conjunctivitis, Adult Bacterial Conjunctivitis, Adult Attestation Patient seen and evaluated by the physician resident programs assistant. Attending physician was present in the emergency department and supervised care. This visit was performed by both the physician and an APC. I performed all aspects of the MDM as documented. This report was transcribed using voice recognition software. Every effort was made to ensure accuracy, however, inadvertently computerized grain elevator worker mistakes may be present. Appropriate healthcare PPE was used in evaluating this patient. The patient was placed in a mask. The healthcare provider was wearing mask, gloves, and utilizing proper hand hygiene. All equipment was properly cleansed. Problem List/Past Medical History Ongoing Benign essential HTN Bilateral hearing loss BMI 50.0-59.9, adult Class 3 severe obesity due to excess calories with body mass index (BMI) of 50.0 to 59.9 in (more content not included)... [facility] Comment on above: Result Comment: Elec tronically Signed By: Ismael Gonzales PA-C\.br\Date and Time Signed: 07/16/23 12:48 EDT\.br\Electronically Co-Signed By: Gi Bruce M.D.\.br\Date and Time Co-Signed: 07/16/23 15:41 EDT ED Patient Education Noteon 07-16-2023 ED Patient Education Note Infectious Disease Viral Conjunctivitis, Adult Viral conjunctivitis is an inflammation of the clear membrane that covers the white part of the eye and the inner surface of the eyelid (conjunctiva). The inflammation is caused by a viral infection. The blood vessels in the conjunctiva become enlarged, causing the eye to become red or pink and often itchy. It usually starts in one eye and goes to the other in a day or two. Infections often resolve over 1?2 weeks. Viral conjunctivitis is contagious. This means it can be easily passed from one person to another. This condition is often called pink eye. What are the causes? This condition is caused by a virus. It can be spread by touching objects that have been contaminated with the virus, such as doorknobs or towels, and then touching your eye. It can also be passed through tiny droplets, such as from coughing or sneezing. What increases the risk? You are more likely to develop this condition if you have a cold or the flu, or are in close contact with a person with pink eye. What are the signs or symptoms? Symptoms of this condition include: ? Redness in the eye. ? Tearing or watery eyes. ? Itchy and irritated eyes. ? Burning feeling in the eyes. ? Clear drainage from the eye. ? Swollen eyelids. ? A gritty feeling in the eye. ? Light sensitivity. This condition often occurs with other symptoms, such as nasal congestion, cough, and fever. How is this diagnosed? This condition is diagnosed with a medical history and physical exam. If you have discharge from your eye, the discharge may be tested to rule out other causes of conjunctivitis. How is this treated? Viral conjunctivitis does not respond to medicines that kill bacteria (antibiotics). The condition most often resolves on its own in 1?2 weeks. If treatment is needed, it is aimed at relieving your symptoms and preventing the spread of infection. This may be done with artificial tear drops, antihistamine drops, or other eye medicines. In rare cases, steroid eye drops or anti?herpes virus medicines may be prescribed. Follow these instructions at home: Medicines ? Take or apply nxvp-jgq-uburimt and prescription medicines only as told by your health care provider. ? Do not touch the edge of the eyelid with the eye-drop bottle or ointment tube when applying medicines to the affected eye. This will prevent the spread of the infection to the other eye or to other people. Eye care ? Avoid touching or rubbing your eyes. ? Apply a clean, cool, wet washcloth onto your eye for 10?20 minutes, 3?4 times per day, or as told by your health care provider. ? If you wear contact lenses, do not wear them until the inflammation is gone and your health care provider says it is safe to wear them again. Ask your health care provider how to disinfect or replace your contact lenses before using them again. Wear glasses until you can resume wearing contacts. ? Avoid wearing eye makeup until the inflammation is gone. Throw away any old eye cosmetics that may be contaminated. ? Gently wipe away any crusting from your eye with a wet washcloth or a cotton ball. General instructions ? Change or wash your pillowcase every day or as told by your health care provider. ? Do not share towels, pillowcases, washcloths, eye makeup, makeup brushes, contact lenses, or eyeglasses. This may spread the infection. ? Wash your hands often with soap and water. Use paper towels to dry your hands. If soap and water are not available, use hand manager science. ? Avoid contact with other people until your eye is no longer red and tearing, or as told by your health care provider. Contact a health care provider if: ? Your symptoms do not improve with treatment, or they get worse. ? You have increased pain. ? Your vision becomes blurry. ? You have a fever. ? You have facial pain, redness, or swelling. ? You have yellow or green drainage coming from your eye. ? You have new symptoms. Get help right away if: ? You develop severe pain. ? Your vision gets much worse. Summary ? Viral conjunctivitis is an inflammation of the clear membrane that covers the white part of the eye and the inner surface of the eyelid. It usually goes away in 1?2 weeks. ? This condition is usually treated with medicines and cold compresses. Treatment focuses on relieving the symptoms. ? This condition is very contagious. To prevent infection, avoid close contact with others, wash your hands often, and do not share towels or washcloths. ? Contact a health care provider if your symptoms do not go away with treatment, or if you have more pain, poor vision, or swelling in the eyes. ? Get help right away if you have severe pain or your vision gets much worse. This information is not intended to replace advice given to you by your health care provider. Make sure you discuss any questions you have with your health care prov (more content not included)... [facility] ED Patient Summaryon 023 ED Patient Summary (Inserted Image. Sharron ble to display) [place] [id number] Patient Discharge Instructions Person Information Name: ZEYNEP HARRELL Age: 58 Years Arrival Date: 07/16/2023 11:54:15 Discharge Diagnosis: Bilateral conjunctivitis Primary Care Physician: Maryanne Liao DO Provider Information Primary Provider: Janis Angelo, Gi Mendoza [employer] Trim:None The exam and treatment you received in the Emergency Department were for an urgent problem and are not intended as complete care. It is important that you follow up with a doctor, nurse practitioner, or physician?s resident programs assistant for ongoing care. If your symptoms become worse or you do not improve as expected and you are unable to reach your usual health care provider, you should return to the Emergency Department. We are available 24 hours a day. ZEYNEP HARRELL has been given the following list of patient education materials, prescriptions and follow-up instructions: Follow-up Instructions: With: Address: When: Maryanne Liao [address], [address], [facility] [address] [place] [address] [employer] In 3 days 07/19/2023 Comments: Follow-up with your primary care provider in 3 to 5 days. If symptoms worsen, do not improve, or new symptoms arise please report back to emergency department for further evaluation. In the event that this physician does not participate in your insurance network, please consult with your insurance company to find a nearby participating provider. Patient Education Materials: Viral Conjunctivitis, Adult; Bacterial Conjunctivitis, Adult A MESSAGE TO ALL PATIENTS REGARDING OPIOIDS PRESCRIPTION OPIOIDS: WHAT YOU NEED TO KNOW Prescription opioids can be used to help relieve anmnxomk-fe-arimyy pain and are often prescribed following a surgery or injury, or for certain health conditions. These medications can be an important part of the treatment but also come with serious risks. It is important to work with your healthcare provider to make sure you are getting the safest, most effective care. WHAT ARE THE RISKS AND SIDE EFFECTS OF OPIOID USE? Prescription opioids carry serious risks of addiction and overdose, especially with prolonged use. An opioid overdose, often marked by slowed breathing, can cause sudden . The use of prescription opioids can have a number of side effects as well, even when taken as directed: ? Tolerance?meaning you might need to take more of the medication for the same pain relief ? Physical dependence?meaning you have symptoms of withdrawal when a medication is stopped ? Increased sensitivity to pain ? Constipation ? Nausea, vomiting, and dry mouth ? Sleepiness and dizziness ? Confusion ? Depression ? Low levels of testosterone that can result in lower sex drive, energy, and strength ? Itching and sweating RISKS ARE GREATER WITH: ? History of drug misuse, substance use disorder, or overdose ? Mental health conditions (such as depression or anxiety) ? Sleep apnea ? Older age (65 years and older) ? Avoid alcohol while taking prescription opioids. Also, unless specifically advised by your health care provider, medications to avoid include: ? Benzodiazepines (such as Xanax or Valium) ? Muscle relaxants (such as Soma or Flexeril) ? Hypnotics (such as Ambien or Lunesta) ? Other prescription opioids KNOW YOUR OPTIONS Talk to your health care provider about ways to manage your pain that don?t involve prescription opioids. Some of these options may actually work better and have fewer risks and side effects. Options may include: ? Pain relievers such as acetaminophen, ibuprofen, and naproxen ? Some medication that are also used for depression or seizures ? Physical therapy and exercise ? Cognitive behavioral therapy, a psychological, goal-directed approach, in which patients learn how to modify physical, behavioral, and emotional triggers of pain and stress. IF YOU ARE PRESCRIBED OPIOIDS FOR PAIN: ? Never take opioids in greater amounts or more often than prescribed. ? Follow up with your primary health care provider. o Work together to create a plan on how to manage your pain. o Talk about ways to help manage your pain that don?t involve prescription opioids. o Talk about any and all concerns and side effects. ? Help prevent misuse and abuse o Never sell or share prescription opioids. o Never use another person?s prescription opioids. ? Store prescription opioids in a secure place and out of reach of others (this may include visitors, children, friends, and family). ? Safely dispose of unused prescription opioids: Find your community drug take-back program or your pharmacy mail-back program, or flush them down the toilet, following guidance from the Food and Drug Administration (www.fda.gov/Drugs/Resour cesForYou). ? Visit www.cdc.gov/drugoverdos (more content not included)... [facility] Prescriptions/Work Noteson 1 Prescriptions/Work Notes [id number] [facility] Consent for Treatmenton 01-14 Consent for Treatment [id number]:12 7 [facility] Heart and Vascular Office/Cl inic Noteon 01-25-2023 Heart and Vascular Office/Clinic Note Chief Complaint here for test results History of Present Illness Zeynep Harrell is a 57-year-old male patient recently establish care with Dr. Centeno. His past medical history is positive for aortic valve stenosis to bicuspid valve, hypertension, hyperlipidemia, diabetes, morbid obesity. He had recent echocardiogram and is here today to discuss results. He denies any cardiac complaints. Patient specifically denies chest pain, palpitations, SOB at rest, CARMONA, edema, orthopnea, PND, dizziness, near syncope, or syncope. Of note, blood pressure is slightly elevated. He has not been taking hydrochlorothiazide as there was some confusion with recent initiation of Jardiance possibly taking the place of hydrochlorothiazide. Review of Systems Constitutional: no fever, no chills, no weakness, no fatigue Respiratory: no shortness of breath, no cough, no orthopnea, no wheezing Cardiovascular: no chest pain, no palpitations, no edema Neuro:no dizziness no light headed no syncope Additional ROS info: Except as noted in the above Review of Systems and in the History of Present Illness all other systems have been reviewed and are negative or noncontributory. Physical Exam Vitals & Measurements HR: 90(Peripheral) BP: 138/88 SpO2: 93% HT: 67 in HT: 170 cm WT: 146 kg WT: 321.2 lb BMI: 50.52 General: alert, no acute distress Neck: Supple, noJVD nocarotid bruit Cardiovascular: regular rate and rhythm, no murmur normal peripheral perfusion Respiratory: Lungs CTA, respirations non labored Extremities:no edema Neurological: oriented x 4, LOC appropriate for age, sensation equal & normal bilaterally, speech normal Skin: Warm, dry, intact- no rash or concerning lesions Cardiac Diagnostics (12/11/2022 12:01 EDT Echo Transthoracic Complete) Interpretation Summary moderate left ventricular hypertrophy. Ejection Fraction = 60-65%. The left ventricular wall motion is normal. Grade I diastolic dysfunction, (abnormal relaxation pattern). The right ventricle size is mildly enlarged . Possible functionally bicuspid aortic valve with moderate aortic valvular thickening and moderate aortic valve restriction. Possible fusion of left and right coronary cusps. Mild to moderate valvular aortic stenosis. AV peak gradient is 41 mmHg. AV mean gradient is 23 mmHg. Aortic valve area is reduced at 0.79 cm^2. Compared to echo report dated 11/21/2021, no appreciable changes noted in LV function and peak and mean aortic valvular gradients. The BK at that time was 1.54 cm??. [1] Assessment/Plan 1. Aortic valve stenosis (I35.0: Nonrheumatic aortic (valve) stenosis) Reviewed echocardiogram with Dr. Centeno at time of exam as reading physician had recommended MANUEL. is moderate in range. Patient is asymptomatic so we will continue with surface surveillance echoes. He will let me know of any chest pain, syncope, heart failure symptoms, which we discussed. 2. Hypertension (I10: Essential (primary) hypertension) Blood pressure suboptimally controlled. He has not been taking hydrochlorothiazide as he thought Jardiance replace this medication. I sent refills of hydrochlorothiazide to pharmacy. He will follow home readings and let me know in 2 weeks if blood pressure still elevated for further adjustments. 3. Hyperlipidemia (E78.5: Hyperlipidemia, unspecified) Patient will continue his statin therapy as he is a diabetic. He is also on an STEFANIE. Primary team follows blood work. 4. Obesity (E66.9: Obesity, unspecified) The standard range for ages 18 and older is >=18.5 and < 25 kg/m2. Your BMI today was above this range, this falls in the overweight to obese category and there are medical benefits to weight loss. We can offer counselling, referral, and/or medical support in addressing this problem. Your BMI and weight management will be followed at subsequent visits. Orders: hydrochlorothiazide, 12.5 mg = 1 tab(s), Oral, Daily, # 90 tab(s), Refills(s) 1, Pharmacy: [id number], 170, cm, 01/25/23 10:08:00 EDT, Height/Length Dosing, 146, kg, 01/25/23 10:08:00 EDT, Weight Dosing Follow-up With When Contact Information Jacobo ROLDAN, Wilbert Morales Within 6 months [address] [place] [address]- Additional Instructions: Problem List/Past Medical History Ongoing Benign essential HTN Bilateral hearing loss BMI 50.0-59.9, adult Class 3 severe obesity due to excess calories with body mass index (BMI) of 50.0 to 59.9 in adult Combined hyperlipidemia Diabetes Encounter for hepatitis C screening test for low risk patient Fasting hyperglycemia Heart murmur, systolic History of retinal vein occlusion Hyperlipidemia Hypertension Lumbar strain Morbid obesity due to excess calories Umbilical hernia without obstruction and without gangrene Historical H/O hypercholesterolemia HTN - Hypertension Retinal hemorrhage Retinal vein occlusion Procedure/Surgical History Hernia repair, Tonsillec (more content not included)... Normal [facility] Comment on above: Result Comment: Elec tronically Signed By: Sun MCGOVERN CNP.chacha\Date and Time Signed: 01/25/23 14:33 EDT Physician Orderon 01-25-2023 Physician Order [id number]#[id number]:12 7 [facility] Coding Summary.on 12-18-2022 Coding Summary. CD:[id number] Ww+PG hlYWQ+EQ8BJLExV51pbNPgyQ4 qS6TRLYhEPoleUBIIWYyXZiXa zeTvQT8uwLGiFYDp IC8+NN4xVROyRpijqWXqx6A5y YX7X44gkp8yZOuxpQE7NBGvUz Gexeesv3qcsXe5CQcyIucnBvX t UDKwiO71PRT9xK76Vv68tVSdq GZgb1hdwHf8RzGfPNMeWQE0aE oeVUtye0JrLTOuO18rbTGpf9O 6 UGHfmIoxwPNpLjDgeDG0iT3hQ Npczjugi2xfoujfSvj3vr01iW Pwp1P4sVP1U1WlfrY2CHUrsRM g TkamqVONaR2ocqvbc5mtrfnfL pDsRIMeIPv2GPx4ONJyvKbmFn JaIL00QFO7NABllsUjX2HqYIT s jQdbRgA1s9Y0Pu0OE9DPBjwbJ 1VNTUFSWTwvdGQ+RN27rl71L9 FePfldDtb6CYQrDTM3tTK9yR3 n JOHcKTryt9H9wSN9B8WebaDlm w8zm6guNBDgPAdjL08nmJZkt4 D8GUAlfQY9KTTvnScrLzHyiM7 3 Oyc+IHFbbJjup9VvWdrov3ugv 0wshQa0XuvdCCUonySojOaeNS X8f6HuMg6yXYKimGF9rOY1pW6 i QtPaXhH4IOexM558EyUkkWReO jhpU92kA2GwjCD+VAYzBcb3WN BmsBniAP7wI4LbEBUquysndBA m fAywJO0qDBEudzwmAJSqqK9wK ILtC8k8XpSdLoV3WIxyI6WoQI GemzdnDk14oS1bSaJrUeS5QGb u P6WstxY5BHDkdBAbEAelRDO0O 58ce0H2INTgKBRvVDR9vIQ5zP 1hbGlnbjogbGVmdDsgdmVydGl j DWakGQoiF941QRXpwFjsZqScA GluZyBEYXRlOiAgMDQvMDQvMj AyMzwvdGQ+DDNnWHV3gZgeMIT n eJKiQGhoLg6bqUjswRefKY8gF VNehzfkKRPtaL4hZNWqcEBprG shGB7aVRUozqjza492EsYoGXK 0 JSAmhIDzU4HavZ7kAbEwMFVzI IQrU4WboLXmTPuaM969NIiaQl B0YMTfhgHgN7ZyUIKuuWijMyD 0 r8I8Tv7Kh1ZdynyqL8QleOVgQ fVrVxzjVHo0W7DqGfbwzHW+PC 05PEHoSV89YCq5LYE1yDmlRMk i WKPxO2LefG6jYpNxTJArYNZuT yc+PHRhYmxlIHdpZHRoPScxMD MuBgSajEnmQF1vPu8qGFUjPCB v cGhjaBOuSrIei0ahQGGfJWxwI S0zfAfaP9EbkVP0FCPwx6n9To 12Y41sF5EnpFT+EHNguMR9vWC 0 fM3rHiQfWdE9DSanF587ElLsh BDaXzufa9xyp7dkeCi9SkR8KG SnyqUdbIldCQW7l0RqZc19H29 s IHdpZHRoPSIxNSUiIHZhbGlnb u2eiY4cVi9+RBLvwVN1xHD4iQ 5mYxPvNdE1OGquG713KrYquIB v Zmcvw0ajt9anpKj5ZhFyZLTgn hBpaDlmUFQ4y3VfMb41O5BmnA guu2RjLkf9ps37vDRvo0D3iRH 9 E9SiXEFcmujfpZLgdRdxIN0rT UVjfbglALWlcL9iYTEcE3j5Sr LjLlR4MFsgR1XsguW8CJGokJR g LEAtuITZkR0kxjnyt0bwyxmhY yOgHLUrQJv2YFv5ANOsbBiyIq SqQAE2ZiT8RAF8gHCjvI1pqDn n cgtxcP0xUpg+NOW7zCZqvEIFG G9xQnfinYG+WEPgEGI8bNigTE rfQCHxwE7aCFUuC2t1IuIgMfX 1 RUkcJ9TeqgH2LWCtbUFjMIOae RBAfK1xtfeoj5kphqbrTmOoKL NcBOs5TSy2RRVhgTxkVoAwKWV 0 KzH2NZY4gBFmbK0avEyhhpkwu G9wOyc+FgjkqLwiOIV8TLg5M9 IfRpg1SRXfnLrxJA2vuHTkWUa u Pe9imJcbjLveTR9bXFBkgnkbh 465LbUji2vlFHYceSDnZQveCD O8C71mp2E0MMHjJMLrZCU4qEN 4 tG3prUbtltqitSJapLsgrvMmp GgaCQguZApyV553GPTeoWgsHd TsENb0R5ZqDat8UPAloSbiXZ8 n mPPiBFweBk3cdEkhlNgoDK4kI IFgfxdws955LqNhh3xqAARdsF NuFOzcTOO2S13tw8N2FSNkBHB w YBI1uDH9pY1rkDptqsqjaUBqf RfyntMyoKkjMTsjQJjxC189WP NlfZmuHrAytPu7X2UtNak5LUU z fGamDY6ugISwVWxyQh1jtQxgs CucSH3kYZVxjxqof534EoGpx2 nhPWEmlPVuWUrwIPR6L34kb0H 6 VLAyXYHxPYV9dAW3lX6tuKsqn jogbGVmdDsgdmVydGljYWwtYW csG054RBKaoBknEuCbbXmdmhM g EHdgDTt3U5XbJqsksMW+PC90Y IZsCY99lZYfiVYeo7jscZy2Wc DjRJBlTSQ2kOcgTMome4BmPJZ t I96rcYQtg4N6QBZflGofaWDxY yJifZF9dB5wHSuokumsy5qszt fsAaiai5clfz09wU55Y37mTHp p TWKoVTBsHHEzUSIzdBuctb9ty G9wIi8+CUQcpTU7rEE2tP2iZK BwAdZ1AVqsL859MdFfzYGoQpb j g8vkj0nvsBp2XoG9ZITmvfUrx MyiIGB7c2WzUw29O81qNWapQE AuWNAoHVZhYFLskSauem6bpT7 w Ii8+KWJokJD0iKE5lI6rTqUtB jT5BKcdV760OcRkiAPpIepiV7 2mG8ZfaVV+HBBwZbu8PZQlnKg s MQ9cgDXjBNuePg7fJRC8KnFsP fCxGJctH2GfFNSldkhppjoiqU G6VNOjTVRjhX18Hs5hhYceYCX w eCREzC5tberzm0tnucyqBfOnC RBmIIp3ISw8PEAqcEfcFbCqPG M7AhD7BFA4mJUhcX2lrDljurj g fI7zA7KiYZMwgkfaRu53gF6yW rMlRwP5QMvvLkw+J26DMScqWX FAAflJTV2OCSBCSAs9U9WbNht 0 ZJOlaUqmQG0qcPXkOPwwKe2hx GnnzWutHY6rPPBonhshTMXhkA 0sKMQttXTtsRtoOR8oQOUserd m l345AyUsIHR2WTIgqAMgG4Xmt U0bUwBxUSInLFZcY2EpmLEoDJ ugE327MRwiOlE6FDLdbrKfT7Y s WAFpsJkuIbG3f9W7Xd3xFW2aK v4lWVY9KX55LW06fKCdm7J3wN K1Q6ZfYARcxikmfamhlPC2WLM u EDDfaZ03vDNiYYueFi6fd8S2h 592FNXxDWOrcD04Il4nmRalIR TwhOYFgT9rwxtnp5qhxlwgYzM w FYYqXFb6UZo2HPWquIcsZoGtH RI6UmD7XRW5oKIjgM9tcPkbfn bcuO6hAja+UMwfDPNyeiA3Y6A k Ank1HBIyxFvdDF2luXMwELheO f1dwXwfgAjsVI1cVHYbewigEW HwwP8qXZSiiIPxrZnuSR5vNQY p exyfy068CzPcOGG6XYMsjMJsA 6XkjV4yGxGyWBDzFMGtS2McmR EdASxmK928NWknFiS1EOMfddJ p J9JvSNAwsFlkHbU8v6F7Nr6AJ QbuJG97BG16oZBsf8D3dZM9I1 FyLNFyncnjoediqHO5PLHiYMN w rM66bOKcSRrqVe5yv2B9q592Z JLlMJGbsI80Qb6luYttCDVefA XNeN3cporwk8pwchmzPxHgNSF w OKb4NGq2NCJadZrfJgQzAUB6N vY9RYY3kCZupK4alXfrsehxnJ 9wOyc+Y6X1zXW8oAXvsApgvTK + MZ44ug78B1PkSgqrYzg1BUUnZ RZ0uPA9qW6lOJDpDRrzp3M2bA X1Q9EcnlEgef0cu5glUXCuOZm g U18ksPHck4B6UUHjxZC8KUOqy GtzJdPvkY39Jtp+PGNvbGdyb3 EcGhpyr7mhb3rueAc8MoHlFOZ g fvWweGpaRNM3y4FyVb37Z19xO HdpZHRoPSIzMCUiIHZhbGlnbj 0sfW1hIs5+IWFvhZP3gOM8bM4 i OpNmSnP3ZUfuR330QjZtvUEpW cjjm9yap9bztHy7KmVcDFAzlz TduUiyWHS6r3YlMj34A3TtdHx y i2KbChe0km23eXYiw3F8pGE3I 0IdWMErlaycqQKgzJkcKU4tYM ExidygYKJjcB9cKTToG7e1ZuS w WzH5MXljR9CecrY1NKCfoMQzN IAraCZKxI3nsgywb1tkotcpFl ElBQHbJHe9SKo1MXSktViwOyI s RLN8ThL4IHM7wXJmnE0zrOyff ekleY6pDfl+GEq4q6ikaRVkAZ 5ruZB1QX02QJ00dZWsm9R0dYY 9 D0VwVEZywxgqugljjFM5TEIgI GIesB26Nu2xrIntUc1hNLFtIU B4ONFisGAyR5VsfJ5dKpFpSQU w XUQlW7YvhTSlJDilW386ANzgX lT9HFRzlmBwO9IdFANsgFuyZr S1g7I5Cd6DOZ01MI87WS14gDV g v9N1uKJ4W0IvSEQzffuzwrmig NS8GNMzVPUppF23Oj8cnSokBx 8hISHkFCG7DJFsqYMhB0XvjA2 y ElYzVOFqTYYtG2ZavMRhHTxaL 432IIktGdV0AYCmxjFjC4LaJP DsqRmrWrE0k2W9Vh9LNe92UX7 0 DG73cSLvw9B3aQF3V5LcLQZgi aynabosxBT7NLWsOJFlsW88Vb 0dhOcgTe7dGGOjFNM4NILsmWR z G3RskN7dMwQhLFKtIGZbD2Ngz UXqHMzcK866THxtGqE7CJEvdz PcC0BiKLJxlFmhDcU0u7D5Cd4 Q KHtibqb2W4IjHpucrEL+PC90Y JKuVT77lJRjtSYjg9fluRc6Ey QcDEMhKAV1rHglRSanh3TbPSL t C83weLLx (more content not included)... [facility] Consent for Treatmenton 11-15 Consent for Treatment [id number]#[id number]:12 7 [facility] Pre-Certification Formon Pre-Certification Form [id number]#[id number]:1 27 [facility] Coding Summary.on 10-15-2022 Coding Summary. CD:[id number] Gh0bW w+PGhlYWQ+YO9FDJZbH45deNW ohB6US6vGIJ1GLMIIDWGLVT7Y VR8dhZZ7BFqpX8VgwiOt RhhwaIOrPU34ECk4XWS5hLqzC FmyrW2tlRSfD2p2XfGpIP27hI 07UPsiUKVaXtG4YmDsauwahMQ y X6feNwCjzYGaLps+PHRhYmxlI HdpZHRoPScxMDAlJyBzdHlsZT 2bOl3vVDNeCSCdfSasgYMoKbP j m4gaTKJuCAmpSW2xhKjuE5Moj PK0XOQje5q5Pi64pBH+PHRkIH D6uQyuSHipt929HrXre3xdGEY 3 qSTzVVwkNAP0G86wp1T8SQNlY PUbYYK0qTT5jZ3ipVykarnvD1 VrnLDnJeA8MXP8jLHzvF9xrIp n kktnsG7tPsv+T81SVQ6RYQZGC D2XXox3Z3QcGrflkGN+PC90YW EaMA62gUZkzVFsy8xiqEt0XiY w HHFwTAU0eVwrZKatd6CrJAPiI 78ezPDug2Z7FGIsaIidoRXgOo IzbIR9wS2jXBobdlctu7fcnje n Bntfh6lwil31iN29Q42gZUsvG GUdVVZ1ZGDtFKSooDxkte6pnR 9wIi8+PIikv4wqq3xgvCw1WfU w AQPqksDmjQnzMOC2y7JmMq62U 1AtzUkzv0WzJgu3zj85uJKso6 H9bIR8AAbvESBzwU1bZYraDqX 6 NGZbSkFamQ24qEGuFUoyEe7rm JhpxHygTG3jSITremdcQWVlyG 4qLXDfdNCskXsoMM6pWXJukim m q884OdCsONY6LGXwlMEfJ7Fuy W0xLcFdPWBhJUGkI5AzxIFjLM pgC217VAklAtO2JLJfplUtF3H s GYFjkXruXfW4l3E1Tx5Ap5Llg ytpPYI3ZNopAYTnPaUrKxMsFq Z4B9HtRgl5ZFAoyVsfBQ2bY0L h UCYklzkdmnhaeWP6XKVzPERav S13dPQfCQkqRv2we0H0d548MV McMTTytC07Cy8gkRojWUFsqCM U bJ1vtakxh8tdxkqkOsCoPOAiZ Yc4NQr9JMEfaVfuLoKtUKX6Yj T8HIJ2jZBlcT8mnQgtgbxitE4 w Oyc+R29cnK9kTDU8DDO5qmgtO LDgprBgUT93DE30A9HiTxbecK FibGU+BMMholLetTysNP7rHzI j y0aix8WwZIdhR4FgYWFkNTuvS zx3JGWiMQD2jKL2cQ7iJGZwSM bmv8F4oYR0M6SjuoRvmo0jf8p s RFLaTYaaE65skOLnn5S0ZYXxz QA6UQQgxPrwVpEbfH52Moa+PG TwhOsld4IxOeffg0tco4rskDz 9 PsOwCTZnhdJqzQmeQOY6z8JxJ h16X02fTZwuJJZsAQTtGYSfLJ CzeGsmwn3scJ5fWx3+PGNvbCB 3 aOL3rN2pOVYdOmS4UZyqW608G tWlfXKiEoolh1aag5vdrGn2Yo NwAULwurRzuZonPWM1z1ZwHh3 8 S13wKXrbFZHoGYMpVOQrSXDed Ifzhr0xkT9nMg2+VN0kh5djom 50cP43aIM+HUCzRNT8vHjjAYm w DVLmjD6dHGrwRfD9OBMxEmNrx F89ySOeCVxoMz2kpCjpaRryXK 9vDHUsruecn060DtRkm3weCUZ w fZUhJDpnNVT1O70oi1M6AHJgM HAxMLG7rBO0rP2aqCyofalmwI QevFskkmHuzUqpAGjiIBeyG17 6 IHRvcDsnPlBhdGllbnQgTmFtZ Io7O0KtYge4KVVhvZopRF5vuG GuAQiyOc1ruItxeWnuAL8qLBB p yzcim492MsOaw4ceRETtbMIjA BvkLAJ7T71sz5O1GTEpJGVpVJ T2bVB3tW3ybSdfyvtfnCXktFq g ajWdoLndVFjmEVlkG855XDLwn MseTyLacfJtDMBwwIX5RI19KG 68fEOjc2W4pDH1T5ApHFKalxf t swphsDJ0XISaWCXkoF99Es3tu BsePd2hBJWsZWX5BBOlnAZxV4 FvgX8lVrXlJTAtHBPxC0FkfLC t LVbsP701LMsxPnL4RGDulwHwS 7SyHNMzmVvuVfF8x2L1Ca0WV6 F5VM61OK43vUZpe4T2oYJ5V2F h AVEzykiwvnheiUM8ZUBuRTZbe X42Jd6tbPxfOs5kUWHdXTN7IA LmrMCgS6TyuB4hUmQlLRHqWKF w U5QoxDCsZJpoT126NDjuUqE9Q ZCyanKgH5AaCKTmdYcgIhZ1h3 S8Fv0WHAh6XC11GW85rBVsk9A 5 tHZ3Y6MpRJEfvowlgcdofNJ5V ZYsOPCavW81Rg7xzAbcRk7oOV DnMHE1XKOkdMCoG8MfsQ8fKkZ j MNXfTLMwV6CkcQVgSFuvV826I LolNiP5LEAlrqJzQ8SbNTAldD tkFoV4w7E4Jp2RSVXpKQ31QRM 5 qXM5ND38AL01D3WlVjlqyLMvk +PHRhYmxlIHdpZHRoPScxMD LaRcNdlRwpTB6fGd5hWXHeKZC v uEtfyXWcBdIxa4fgFAIjEFbrZ U8oyLkmC6HcwPS4LHBgo9m0Wi 05T80dP4ZitTS+JUSaxNT4iJY 0 wC5cNpHkGuB3VDboJ036JuSax IHcPwvvp3ias3xfdUr4AaX6PC HlktMbzKadRQS3z6LfWn22Y51 s IHdpZHRoPSIxNSUiIHZhbGlnb l0aaH6cJz2+CREfvKB7jQG5bS 5qQmJqUjN8QSxgH255DaFnoHO v Kzpno0yqn1xbvCh8ZgUoQZPhe jLjmFrgKID7r3MuVa69I9OmzN vme5VoKil7ry50cUQfp0O2xQR 9 M4JcETOkyjxkzCDigRdvEU0uW KBihuwlHRJmgQ8dUOShW2d4Bf LmJfN3WUokF2DxvkN6LEZreGX g KOpoWMT8R54vo9M0OGEjXJKcK BK5oTZ5aE0pbUulmjrcmWHmwW srqiBbzCjyLJcyVEmnB495DAX v xJqjEGPfgQ6fDYQbkGLnpSgcT V1lZJCxuphfQeNUTHUQINYKMC SBV4TWZXqLQjQRXW60SK35jLJ g t2C5nZO2L5UhBGKleggrwrvpa JF6GRPgESPqfN59iGBoQXfhKt 8ud9A3f596YMVgOAUklY10Ng9 u eKfdAZCfnBGKpC9cgnpzi4mlx etlEmRkYUMzTNw6MBb9QWMrqI knUbAoXAV9DdR4OCD0xTJxzM9 h bDkjconovR3zVag+MDgvMTIvM Wz4ODleyNR+OODbORC8iZmgWH efVHOukC1cHCXdI7x6MpUcJtC 1 LOjzO9DwBXTvgpbiMj84hT2kH xNeVoB6QSxcJ1BojpI1HYFqhV TpYDvnWIY4W64eu9K7YIZaQOE w QQY2bZW5jG3rnDkkioyteDFan SwdqzAdhNtsWUbkPLvxF243JY YgeZgyLyG4MDriKTJjWV80XX8 8 kHLuk9N5tIU0N4FaDZYdblmbg wvpoNQ2LOGgQOWovD11vMRcOA gxZe9hv3H5k380TGSaQKUvnA4 7 Vx0xeVrxBEUicLMDcN3jxdvzf 9pdbvwpLtZzWZNvGAl7AZb4EC TsyUfnYlWhIRE3EjS1GQC0hSF h hA8klSxjfguofS2kUow+TWFsZ TwvdGQ+YIAvIJU6rIriVMpfGB HviK3gHRVjJ7t2PxQbBmV2WIv u J9BuMLLjujntVn12sE2aVvLvG wL2MUmgR9QnjaE7DBZpqGAvTC uyXMZ7Y23wm1F2YEOgUECnIOO 7 pEG1yK6afKkogfxohDJpxWhjk qKkxBqzBBmrPXoqN441KBRcyJ yxUw15pHVnzOqzilV5N7CxEhe v dHI+GJ42XTOuPJ97oCIgoWJbc 5olmSu1CcPuHPGjJOW7jEjfFY umi9XtTANjM85lhYShu4E1UTA v wKgslFEtRsQtgTE8xQ6zSHopm sink5gzztxdAfmed0iojj42bV 73G96lWKugPKJvVCNoQARfRYA h qTdriq1pnJ7yDf9+KTNxcXT1x NF9xW3fAcUpUkC9ULbvV754El LqrMNpFhpai0fgm6kjdOf0RcX w RQJjnfPnaQmbFDI1y9FtYf25M 29sIHdpZHRoPSIyMCUiIHZhbG dmvi1rlF1uGl6+WX9xe6diut3 1 dR37wKL+VDEmRPT1hIwfWRmvD LIxqY6sJAgiFyT5FLNnZuGpuN 67eHBiQGvhMu9oiSqqaPpqFG6 w PPPivhbfi915GdRyq4weEDYlk ZLkKHcvDEP4X91qp2B5UKXkRM WkUVJ5sOJ1gH5aiJnizzpfsOY m gZoeckXlbOmaYEstULylZ219Y AIafHasMcQblNAaQ6rucfVEVB 1lOjwvdGQ+BTEyXDT9jInzCKt w JTLekS0vUEQfF0m8DkWjTdG6N FncB3EfvmI1HJMbuCGbTQEuqW EEdP4mwjbuc8trxaroIyAgWTG w FVg0IKg0SGLutJwyIwEkGWH1F qH9UFT8tFKfsP3urAhzwdbpjR 9wOyc+RklOOjwvdGQ+PHRkIHN 0 zQvpLYmhVYQrpE9pBPNkT2j6V bMoZjV7TUpoF5LecfB7CNTylV KvDBIocCVPsM2hrtrit1idedc g RoCxUHQlZLj3KPx7LIWeyTlkS bSoDZH8FtR7YRF2fZTdaW0hbP gktyqdfT2cLae+TVJOOjwvdGQ + BRNsWKQ5eLcqTBhlCTEpdV2fC JEbI1y6EsHlKmR8IKboX1Biff Q1QMCfnJPiFCJhmRKEkY1klvd j d5qxeayxKoLrVXZmKLx5UYs0I TNqpTfeSeErSZS3HxI2MLZ5jZ HelP6gtIasyneowF9zAec+UGF 5 VLP2UT15DS39X8GgHjbgvWYow +PHRhYmxlIHdpZHRoPScxMD WuWfVohVbbPB0oEf6wMSZgZLU v bGxh (more content not included)... Normal [facility] Heart and Vascular Office/Cl inic Noteon 10-11-2022 Heart and Vascular Office/Clinic Note Chief Complaint New Patient- Stenosis History of Present Illness Zeynep Harrell presents for evaluation of a heart murmur. He is accompanied by an adult female. The patient was recently evaluated by Dr. Liao for a general check-up. Dr. Liao heard a heart murmur and recommended an echocardiogram. He denies any known cardiac symptoms. The patient does experience shortness of breath with exertion, which he attributes to his weight. He denies shortness of breath while lying down in bed, but he does believe he has sleep apnea. He denies chest pain or tightness. The patient does experience lower extremity edema, right worse than left. The adult female reports the patient has hypertension and headaches. She states the patient would take his blood pressure medication when he would experience headaches. He also has a history of ruptured blood vessels in his eyes. The adult female reports the patient's cousin underwent an aortic valve replacement in 08/[address] Hutchison. Review of Systems PHQ Score Initial Depression Screen Score: 0 Constitutional: no fever, no sweats, no weakness Skin: no rash, no lesions, no bruising/petechiae ENMT: no sore throat, no congestion, no hoarseness Respiratory: Positive for shortness of breath, no cough, no orthopnea, no wheezing Cardiovascular: no chest pain, no palpitations, no edema Gastrointestinal: no nausea, no vomiting, no diarrhea, no GI bleeding Genitourinary: no anuria/oliguria no hematuria Musculoskeletal: no back pain, no trauma Neurologic: no headache, no dizziness, no numbness, no weakness Psychiatric: no sleeping problems, no irritability, no anxiety/depression. Heme/Lymph: no bleeding tendency, no bruising tendency Allergy/Immunologic: no recurrent infections, no impaired immunity Additional ROS info: Except as noted in the above Review of Systems and in the History of Present Illness all other systems have been reviewed and are negative or noncontributory Physical Exam Vitals & Measurements HR: 89(Peripheral) BP: 120/82 SpO2: 96% HT: 67 in HT: 170 cm WT: 147 kg WT: 323.4 lb BMI: 50.87 General: alert, no acute distress Skin: warm, dry intact Head: atraumatic, normocephalic Neck: Trachea midline, no JVD, no bruit Eye: normal conjunctiva, sclera clear ENMT: oral mucosa moist Cardiovascular: regular rate and rhythm, no murmur, normal peripheral perfusion Respiratory: Lungs CTA, respirations non labored Chest wall: no deformity. Gastrointestinal: soft, non-distended, no tenderness, no guarding. Back: No tenderness, Normal ROM, Normal alignment. Extremities: no edema, no deformity, no trauma Neurological: oriented x 4, LOC appropriate for age, sensation equal & normal bilaterally, speech normal Psychiatric: cooperative, affect appropriate for age, normal judgement, normal psychiatric thoughts. Assessment/Plan We will continue with surveillance and repeat an echocardiogram. Documentation services were performed after patient or guardian consented to allow [employer] to record this visit. ALEXANDRA clinical rehabilitation specialist and provider reviewed before signing. ALEXANDRA: Jennifer Tillman Follow-up No qualifying data available Problem List/Past Medical History Ongoing Benign essential HTN Bilateral hearing loss BMI 50.0-59.9, adult Class 3 severe obesity due to excess calories with body mass index (BMI) of 50.0 to 59.9 in adult Combined hyperlipidemia Diabetes Encounter for hepatitis C screening test for low risk patient Fasting hyperglycemia Heart murmur, systolic History of retinal vein occlusion Hyperlipidemia Hypertension Lumbar strain Morbid obesity due to excess calories Umbilical hernia without obstruction and without gangrene Historical H/O hypercholesterolemia HTN - Hypertension Retinal hemorrhage Retinal vein occlusion Procedure/Surgical History Hernia repair, Tonsillectomy and adenoidectomy, Vasectomy. Medications atorvastatin 40 mg Tab, 40 mg= 1 tab(s), Oral, Daily hydrochlorothiazide-irbes atz 12.5 mg-150 mg Tab, 1 tab(s), Oral, Daily, Not taking lisinopril 40 mg Tab, 40 mg= 1 tab(s), Oral, Daily metformin 500 mg oral tablet, 500 mg= 1 tab(s), Oral, BID metoprolol 100 mg ER Tab, 100 mg= 1 tab(s), Oral, Daily Allergies No Known Allergies Social History Alcohol - Denies Alcohol Use, 08/17/2015 Employment/School Unemployed, 03/01/2020 Home/Environment Lives with Spouse., 03/01/2020 Substance Abuse - Denies Substance Abuse, 08/17/2015 Tobacco - Denies Tobacco Use, 08/17/2015 Never (less than 100 in lifetime) Tobacco Use:. Never Smokeless Tobacco Use:., 10/09/2022 Never (less than 100 in lifetime) Tobacco Use:., 10/06/2021 Family History ATRIAL FIBRILLATION: Father. Aneurysm: Mother. Diabetes mellitus type 2: Mother and Father. Heart disease: Mother and Father. Thyroid disorder: Sister. Immunizations Vaccine Date Status Comments influenza virus vaccine, inactivated - Not (more content not included)... [facility] Comment on above: Result Comment: Elec tronically Signed By: Jacobo ROLDAN, Wilbert Morales\.br\Date and Time Signed: 10/11/22 14:50 EST\.br\Electronically Co-Signed By: Jennifer Tillman\.br\Date and Time Co-Signed: 10/09/22 16:25 EST Physician Orderon 10-10-2022 Physician Order [id number]:1 27 [facility] Reminderson 10-10-2022 Reminders - From: Alyssa Asher To: Gisel Merchant; Sent: 10/10/2022 10:22:51 EST Show up: 11/14/2022 10:22:00 EST Subject: 6 week follow up Due Date/Time: 11/21/2022 10:22:00 EST Reminder/Recall 6 week follow up with Sun (November 2022) [facility] Consent for Treatmenton 09-17 Consent for Treatment [id number]:12 7 [facility] Vital Signs Date Time Vital Sign Value Performing Clinician Facility 07-16-2024 10: Body height 170.18 cm [facility] 07-16-2024 10:23040 Body mass index (BMI) [Ratio] 49.3 kg/m2 [facility] 07-16-2024 10:040 Body weight 142.88 kg [facility] 07-16-2024 10:23-040 Diastolic blood pressure 85 mm[Hg] [facility] 07-16-2024 10:23-040 Heart rate 77 /min [facility] 07-16-2024 10:23-0400 SaO2% (BldA) [Mass fraction] 97 % [facility] 07-16-2024 10:23-0400 Systolic blood pressure 163 mm[Hg] [facility] 10-16-2023 15:00-0500 Body height 170.18 cm Harman Bennett Other [facility] 10-16-2023 15:00-0500 Body mass index (BMI) [Ratio] 49.33 kg/m2 Harman Bennett Other [facility] Other 10-16-2023 15:00-0500 Body weight 142.88 kg Harman Bennett Other [facility] 10-16-2023 15:00-0500 Diastolic blood pressure 79 mm[Hg] Harman Bennett Other [facility] 10-16-2023 15:00-0500 SaO2% (BldA) [Mass fraction] 94 % Harman Bennett Other [facility] Other 10-16-2023 15:00-0500 Systolic blood pressure 131 mm[Hg] Harman Bennett Other [facility] 07-19-2023 15:18-0400 Body temperature 98.06 [degF] Darren Kaur [facility] 07-19-2023 15:18-0400 Diastolic blood pressure 102 mm[Hg] Darren Vincent [facility] 07-19-2023 15:18-0400 Heart rate 61 /min Darren Vincent [facility] 07-19-2023 15:18-0400 Respiratory rate 16 /min Darren Vincent [facility] 07-19-2023 15:18-0400 SaO2% (BldA) [Mass fraction] 98 % Darren Vincent [facility] 07-19-2023 15:18-0400 Systolic blood pressure 189 mm[Hg] Darren Kaur [facility] 07-16-2023 12:02-0400 Body temperature 97.16 [degF] [facility] 07-16-2023 12:02-0400 Diastolic blood pressure 99 mm[Hg] [facility] 07-16-2023 12:02-0400 Heart rate 92 /min [facility] 07-16-2023 12:02-0400 Respiratory rate 18 /min [facility] 07-16-2023 12:02-0400 SaO2% (BldA) [Mass fraction] 93 % [facility] 07-16-2023 12:02-0400 Systolic blood pressure 144 mm[Hg] [facility] 01-25-2023 10:04-0400 Diastolic blood pressure 88 mm[Hg] Sun HWANGMike [facility] 01-25-2023 10:04-0400 Heart rate 90 /min Sun MCGOVERN [facility] 01-25-2023 10:04-0400 SaO2% (BldA) [Mass fraction] 93 % Sun MCGOVERN [facility] 01-25-2023 10:04-0400 Systolic blood pressure 138 mm[Hg] Sun MCGOVERN [facility] Encounters Encounter Date Encounter Type Care Provider Facility Start: 07-16-2024 End: 07-16-2024 ambulatory [facility] Work Phone: Start: 07-16-2024 End: 07-16-2024 Patient encounter procedure [facility] Work Phone: Start: 10-28-2023 End: 10-28-2023 ambulatory Harman Bennett Facility:[facility] Start: 10-28-2023 End: 10-28-2023 ambulatory DO Maryanne C Yanni Work Phone: [facility] Work Phone: Start: 10-28-2023 End: 10-28-2023 Patient encounter procedure DO Maryanne Yanni Work Phone: [facility] Work Phone: Start: 10-16-2023 End: 10-16-2023 ambulatory Maryanne C Yanni Facility:[facility] Start: 10-16-2023 End: 10-16-2023 Patient encounter procedure DO Maryanne Yanni Work Phone: [facility] Work Phone: Start: 10-16-2023 End: 10-16-2023 ambulatory DO Maryanne C Yanni Work Phone: [facility] Work Phone: Start: 10-16-2023 Office outpatient ne w 60 minutes Harman Bennett [facility] Start: 10-16-2023 Patient encounter procedure DO Maryanne Yanni Work Phone: [facility]- Start: 07-19-2023 End: 07-19-2023 Emergency department patient visit Darren Kaur Facility:[facility] Start: 07-19-2023 End: 07-19-2023 Emergency department patient visit Darren Kaur [facility] Start: 07-16-2023 End: 07-16-2023 Emergency department patient visit Minipablo Mendoza Janis Facility:[facility] Start: 07-16-2023 End: 07-16-2023 Emergency department patient visit Gi Reji Janis [facility] Start: 01-25-2023 End: 01-26-2023 ambulatory XXXX NONE Facility:[facility] Start: 01-25-2023 End: 01-25-2023 Patient encounter procedure Sun MCGOVERN [facility] Start: 12-11-2022 End: 12-12-2022 ambulatory Wilbert Centeno Facility:[facility] Start: 12-11-2022 End: 12-11-2022 Patient encounter procedure Wilbert Centeno [facility] Start: 10-09-2022 End: 10-10-2022 ambulatory Wilbert Centeno Facility:[facility] Procedures Date Procedure Procedure Detail Performing Clinician Hernia repair Wilbert Murillo bindu Tonsillectomy and adenoidectomy Wilbert Centeno Vasectomy Wilbert Abrams rick Immunizations Immunization Date Immunization Notes Care Provider Fa cility NEGATED: Highlighted row has not occurred!03-01-2020 influenza virus vaccine, unspecified formulation Wilbert Centeno [facility] [place] Payers Date Payer Category Payer Self-pay [id number] 2023 Unknown [id number] 2022 Unknown [id number] 2021 Unknown [id number] 1965 Unknown [id number] 2.16.8 [id number] 1965 Unknown [id number] 2.16.8 [id number] 1965 Unknown [id number] 2.16.8 [id number] 1965 Unknown [id number] 2.16.8 [id number] 1965 Unknown [id number] 2.16.8 [id number] Unknown [id number] 2.16.8 [id number] Unknown [id number] 2.16.8 [id number] Social History Date Type Detail Facility Start: 10-09-2022 End: 01-25-2023 Tobacco smoking status Never smoked tobacco (finding) [facility] Tobacco smoking status Never [facility] Sex Assigned At Male [facility] Start: 1965 Sex Assigned At Male Tristian [facility] Medical Equipment Procedure Code Equipment Code Equipment Original Text Equi pment Identifier Dates OneTouch Delica Plus [id number] - Functional Status Date Assessment Result Facility 07-19-2023 Functional Status N/A [facility] 07-16-2023 [facility] N/A [facility] [facility] 01-25-2023 Functional Status No [facility] Clinical Notes 12-11-2022 to 10-16-2023 Note Date & Type Note Facility 10-16-2023 Evaluation note Encounter Date Diagnosis Assessment Notes Sep, Sleep apnea (ICD-10 - G47.30) His history and physical exam are extraordinarily suggestive of sleep apnea. He has had loud snoring, observed apneas, nonrestorative sleep, gasping arousals, sleep hypoxia, and severe excessive daytime sleepiness. He believes he likely has sleep apnea. Based on high pretest probability we will get home sleep testing in order to expedite evaluation and treatment. I reviewed the diagnosis and its implications and he does express good understanding. We also extensively reviewed treatment. We will anticipate starting auto CPAP. I anticipate return for 31 to 90-day visit. I advised the patient to not use his oxygen the night of the home sleep test, but to resume it immediately after Sep, Hypoxia, sleep related (ICD-10 - G47.34) The patient had severe sleep associated hypoxia during recent hospitalization, and has been started on sleep oxygen on that basis. It is possible that controlling sleep apnea could resolve the hypoxia, but the patient may also have obesity hypoventilation. Sep, Obesity hypoventilation syndrome (ICD-10 - E66.2) I am concerned that he may have obesity hypoventilation. He had a dramatically elevated bicarbonate level when admitted in respiratory failure, and it is significant that this was not following sleep but rather happened after a full edge worker. Even after his respiratory failure stabilized his bicarbonate level was 29.1, and anything above 26 suggests obesity hypoventilation. Sep, BMI 45.0-49.9, adult (ICD-10 - Z68.42) Obstructive sleep apnea and obesity hypoventilation syndrome are both directly associated with elevated body weight. The most effective natural intervention for sleep apnea and obesity hypoventilation is weight reduction. Weight reduction would be broadly beneficial for overall health, but would also have direct benefits on apnea severity and sleep quality. Even moderate weight reduction can affect SHIRA and snoring, and in some patients weight reduction can completely resolve sleep apnea Sep, Essential hypertension (ICD-10 - I10) Uncontrolled sleep apnea can significantly increase blood pressures, and there is a strong association between untreated apnea and requiring multiple medications for hypertension treatment. Control of sleep apnea will frequently have a positive effect on blood pressure control, and may additionally reduce blood pressure lability. 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 No other causes were determined apparently, so I am concerned that chronic hypoventilation and chronic severe sleep apnea may be a significant part of this hypoxia and respiratory failure Sep, Other The diagnosis of Sleep Apnea was reviewed in detail. The patient expresses good understanding, We also reviewed the medical and accident risks associated with sleep apnea and excessive fatigue. The patient is advised to adhere to a proper sleep hygiene schedule and to assure adequate total sleep time; The patient was advised to continue efforts at progressive weight loss, including decreased overall caloric intake quantity and better food choices.The patient was advised to call or return any difficulties arise, including changes in symptoms and/or problems with treatment [facility] Other 11-03-2023 Hospital Discharge instructions Patient Education 07/19/2023 15:52:58 Bacterial Conjunctivitis, Adult, Ycmf-kf-Dbbz Bacterial Conjunctivitis, Adult Bacterial conjunctivitis is an infection of your conjunctiva. This is the clear membrane that covers the white part of your eye and the inner part of your eyelid. This infection can make your eye: Red or pink. Itchy or irritated. This condition spreads easily from person to person (is contagious) and from one eye to the other eye. What are the causes? This condition is caused by germs (bacteria). You may get the infection if you come into close contact with: A person who has the infection. Items that have germs on them (are contaminated), such as face towels, contact lens solution, or eye makeup. What increases the risk? You are more likely to get this condition if: You have contact with people who have the infection. You wear contact lenses. You have a sinus infection. You have had a recent eye injury or surgery. You have a weak body defense system (immune system). You have dry eyes. What are the signs or symptoms? Thick, yellowish discharge from the eye. Tearing or watery eyes. Itchy eyes. Burning feeling in your eyes. Eye redness. Swollen eyelids. Blurred vision. How is this treated? Antibiotic eye drops or ointment. Antibiotic medicine taken by mouth. This is used for infections that do not get better with drops or ointment or that last more than 10 days. Cool, wet cloths placed on the eyes. Artificial tears used 2 6 times a day. Follow these instructions at home: Medicines Take or apply your antibiotic medicine as told by your doctor. Do not stop using it even if you start to feel better. Take or apply giuu-lkl-lzdndxa and prescription medicines only as told by your doctor. Do not touch your eyelid with the eye-drop bottle or the ointment tube. Managing discomfort Wipe any fluid from your eye with a warm, wet washcloth or a cotton ball. Place a clean, cool, wet cloth on your eye. Do this for 10 20 minutes, 3 4 times a day. General instructions Do not wear contacts until the infection is gone. Wear glasses until your doctor says it is okay towear contacts again. Do not wear eye makeup until the infection is gone. Throw away old eye makeup. Change or wash your pillowcase every day. Do not share towels or washcloths. Wash your hands often with soap and water for at least 20 seconds and especially before touching your face or eyes. Use paper towels to dry your hands. Do not touch or rub your eyes. Do not drive or use heavy machinery if your vision is blurred. Contact a doctor if: You have a fever. You do not get better after 10 days. Get help right away if: You have a fever and your symptoms get worse all of a sudden. You have very bad pain when you move your eye. Your face: ?Hurts. ?Is red. ?Is swollen. You have sudden loss of vision. Summary Bacterial conjunctivitis is an infection of your conjunctiva. This infection spreads easily from person to person. Wash your hands often with soap and water for at least 20 seconds and especially before touching your face or eyes. Use paper towels to dry your hands. Take or apply your antibiotic medicine as told by your doctor. Contact a doctor if you have a fever or you do not get better after 10 days. This information is not intended to replace advice given to you by your health care provider. Make sure you discuss any questions you have with your health care provider. Document Revised: 12/13/2021 Document Reviewed: 12/13/2021 [employer] Patient Education 2022 Be my eyes. Follow Up Care 07/19/2023 15:11:01 With:Rangel Huang Address: [facility] [address], [facility] [address] [place] [address] Business (1) When:07/22/2023 15:43:20 Comments:Follow-up with your eye doctor if this does not improve. If symptoms if you not have an eye doctor,you may follow-up with Dr. Huang With:Maryanne Liao Address: [address] , [facility] [address] [place] [address] Business (1) When:07/22/2023 15:43:07 Comments:Follow-up with your primary care provider in 3 to 5 days. If symptoms worsen, do not improve, or new symptoms arise please report back to emergency department for further evaluation. [facility]10-31-2023 Hospital Discharge instructions Patient Education 07/16/2023 12:19:33 Viral Conjunctivitis, Adult Viral Conjunctivitis, Adult Viral conjunctivitis is an inflammation of the clear membrane that covers the white part of the eyeand the inner surface of the eyelid (conjunctiva). The inflammation is caused by a viral infection.The blood vessels in the conjunctiva become enlarged, causing the eye to become red or pink and often itchy. It usually starts in one eye and goes to the other in a day or two. Infections often resolve over 1 2 weeks. Viral conjunctivitis is contagious. This means it can be easily passed from one person to another. This condition is often called pink eye. What are the causes? This condition is caused by a virus. It can be spread by touching objects that have been contaminated with the virus, such as doorknobs or towels, and then touching your eye. It can also be passed through tiny droplets, such as from coughing or sneezing. What increases the risk? You are more likely to develop this condition if you have a cold or the flu, or are in close contact with a person with pink eye. What are the signs or symptoms? Symptoms of this condition include: Redness in the eye. Tearing or watery eyes. Itchy and irritated eyes. Burning feeling in the eyes. Clear drainage from the eye. Swollen eyelids. A gritty feeling in the eye. Light sensitivity. This condition often occurs with other symptoms, such as nasal congestion, cough, and fever. How is this diagnosed? This condition is diagnosed with a medical history and physical exam. If you have discharge from your eye, the discharge may be tested to rule out other causes of conjunctivitis. How is this treated? Viral conjunctivitis does not respond to medicines that kill bacteria (antibiotics). The condition most often resolves on its own in 1 2 weeks. If treatment is needed, it is aimed at relieving your symptoms and preventing the spread of infection. This may be done with artificial tear drops, antihistamine drops, or other eye medicines. In rare cases, steroid eye drops or anti herpes virus medicines may be prescribed. Follow these instructions at home: Medicines Take or apply hmgs-hpr-witdrpl and prescription medicines only as told by your health care provider. Do not touch the edge of the eyelid with the eye-drop bottle or ointment tube when applying medicines to the affected eye. This will prevent the spread of the infection to the other eye or to other people. Eye care Avoid touching or rubbing your eyes. Apply a clean, cool, wet washcloth onto your eye for 10 20 minutes, 3 4 times per day, or as told by your health care provider. If you wear contact lenses, do not wear them until the inflammation is gone and your health care provider says it is safe to wear them again. Ask your health care provider how to disinfect or replaceyour contact lenses before using them again. Wear glasses until you can resume wearing contacts. Avoid wearing eye makeup until the inflammation is gone. Throw away any old eye cosmetics that may be contaminated. Gently wipe away any crusting from your eye with a wet washcloth or a cotton ball. General instructions Change or wash your pillowcase every day or as told by your health care provider. Do not share towels, pillowcases, washcloths, eye makeup, makeup brushes, contact lenses, or eyeglasses. This may spread the infection. Wash your hands often with soap and water. Use paper towels to dry your hands. If soap and water are not available, use hand manager science. Avoid contact with other people until your eye is no longer red and tearing, or as told by your health care provider. Contact a health care provider if: Your symptoms do not improve with treatment, or they get worse. You have increased pain. Your vision becomes blurry. You have a fever. You have facial pain, redness, or swelling. You have yellow or green drainage coming from your eye. You have new symptoms. Get help right away if: You develop severe pain. Your vision gets much worse. Summary Viral conjunctivitis is an inflammation of the clear membrane that covers the white part of the eyeand the inner surface of the eyelid. It usually goes away in 1 2 weeks. This condition is usually treated with medicines and cold compresses. Treatment focuses on relieving the symptoms. This condition is very contagious. To prevent infection, avoid close contact with others, wash yourhands often, and do not share towels or washcloths. Contact a health care provider if your symptoms do not go away with treatment, or if you have more pain, poor vision, or swelling in the eyes. Get help right away if you have severe pain or your vision gets much worse. This information is not intended to replace advice given to you by your health care provider. Make sure you discuss any questions you have with your health care provider. Document Revised: 08/01/2020 Document Reviewed: 07/15/2020 [employer] Patient Education 2021 Be my eyes. 07/16/2023 12:19:33 Bacterial Conjunctivitis, Adult Bacterial Conjunctivitis, Adult Bacterial conjunctivitis is an infection of the clear membrane that covers the white part of the eye and the inner surface of the eyelid (conjunctiva). When the blood vessels in the conjunctiva become inflamed, the eye becomes red or pink. The eye often feels irritated or itchy. Bacterial conjunctivitis spreads easily from person to person (is contagious). It also spreads easily from one eye to the other eye. What are the causes? This condition is caused by bacteria. You may get the infection if you come into close contact with: A person who is infected with the bacteria. Items that are contaminated with the bacteria, such as a face towel, contact lens solution, or eye makeup. What increases the risk? You are more likely to develop this condition if: You are exposed to other people who have the infection. You wear contact lenses. You have a sinus infection. You have had a recent eye injury or surgery. You have a weak body defense system (immune system). You have a medical condition that causes dry eyes. What are the signs or symptoms? Symptoms of this condition include: Thick, yellowish discharge from the eye. This may turn into a crust on the eyelid overnight and cause your eyelids to stick together. Tearing or watery eyes. Itchy eyes. Burning feeling in your eyes. Eye redness. Swollen eyelids. Blurred vision. How is this diagnosed? This condition is diagnosed based on your symptoms and medical history. Your health care provider may also take a sample of discharge from your eye to find the cause of your infection. How is this treated? This condition may be treated with: Antibiotic eye drops or ointment to clear the infection more quickly and prevent the spread of infection to others. Antibiotic medicines taken by mouth (orally) to treat infections that do not respond to drops or ointments or that last longer than 10 days. Cool, wet cloths (cool compresses) placed on the eyes. Artificial tears applied 2 6 times a day. Follow these instructions at home: Medicines Take or apply your antibiotic medicine as told by your health care provider. Do not stop using the antibiotic, even if your condition improves, unless directed by your health care provider. Take or apply zvtw-yub-gsxcswh and prescription medicines only as told by your health care provider. Be very careful to avoid touching the edge of your eyelid with the eye-drop bottle or the ointment tube when you apply medicines to the affected eye. This will keep you from spreading the infection to your other eye or to other people. Managing discomfort Gently wipe away any drainage from your eye with a warm, wet washcloth or a cotton ball. Apply a clean, cool compress to your eye for 10 20 minutes, 3 4 times a day. General instructions Do not wear contact lenses until the inflammation is gone and your health care provider says it is safe to wear them again. Ask your health care provider how to sterilize or replace your contact lenses before you use them again. Wear glasses until you can resume wearing contact lenses. Avoid wearing eye makeup until the inflammation is gone. Throw away any old eye cosmetics that may be contaminated. Change or wash your pillowcase every day. Do not share towels or washcloths. This may spread the infection. Wash your hands often with soap and water for at least 20 seconds and especially before touching your face or eyes. Use paper towels to dry your hands. Avoid touching or rubbing your eyes. Do not drive or use heavy machinery if your vision is blurred. Contact a health care provider if: You have a fever. Your symptoms do not get better after 10 days. Get help right away if: You have a fever and your symptoms suddenly get worse. You have severe pain when you move your eye. You have facial pain, redness, or swelling. You have a sudden loss of vision. Summary Bacterial conjunctivitis is an infection of the clear membrane that covers the white part of the eye and the inner surface of the eyelid (conjunctiva). Bacterial conjunctivitis spreads easily from eye to eye and from person to person (is contagious). Wash your hands often with soap and water for at least 20 seconds and especially before touching your face or eyes. Use paper towels to dry your hands. Take or apply your antibiotic medicine as told by your health care provider. Do not stop using the antibiotic even if your condition improves. Contact a health care provider if you have a fever or if your symptoms do not get better after 10 days. Get help right away if you have a sudden loss of vision. This information is not intended to replace advice given to you by your health care provider. Make sure you discuss any questions you have with your health care provider. Document Revised: 12/13/2021 Document Reviewed: 12/13/2021 [employer] Patient Education 2022 Be my eyes. Follow Up Care 07/16/2023 11:58:06 With:Maryanne Yanni Address: [address], [place] [address] [place] [address]- Business (1) When:07/19/2023 12:12:35 Comments:Follow-up with your primary care provider in 3 to 5 days. If symptoms worsen, do not improve, or new symptoms arise please report back to emergency department for further evaluation. [facility]10-31-2023 Evaluation + Plan noteExtracted from: Title:ED Note Author:Ismael Gonzales PA-C te:07/16/23 Bilateral conjunctivitis (H1 0.9: Unspecified conjunctivitis) Orders: polymyxin B-trimethoprim ophthalmic, 1 drop(s), OPTH, q3hr for 10 day(s), 10 mL, Refill(s) 0, [id number], 170, cm, 07/16/23 12:05:00 EDT, Height/Length Dosing, 145, kg, 07/16/23 12:05:00 EDT, Weight Dosing Future Appointments Appointment Date:07/17/2023 12:00:00 PM Scheduled Provider:Wilbert Centeno MD Location:.Cardiology Clinic Appointment Type:Cardiology Follow Up (FT) [facility]05-11-2023 Hospital Discharge instructions Follow Up Care 01/24/2023 12:21:40 With:Wilbert Centeno MD Address: [address] [place] [address]- When:6 months [facility]03-28-2023 NoteEchocardiology Procedure Exam Date/Time Accession # Ordering Dr. Tiwari Transthoracic 12/11/2022 12:01 EDT [id number] Wilbert Centeno MD CPT code 80029 [id number] Reason for Exam (Echo Transthoracic Complete) Q23.1 Congenital insufficiency of aortic valve;Other (please specify) Report [facility] [address] [place] [address] Adult Echocardiogram Report Name: ZEYNEP HARRELL Study Date: 12/11/2022 11:04 AM BP: 140/95 mmHg Patient Location: [facility] HR: 90 : 1965 Gender: Male Height: 68 in Age: 57 yrs Ethnicity: [facility] Weight: 285 lb Reason For Study: Other (please specify) BSA: 2.4 m2 Ordering Physician: Jacobo^Wilbert^D. Referring Physician: Wilbert Centeno Performed By: Matilde Arambula RDCS Interpretation Summary moderate left ventricular hypertrophy. Ejection Fraction = 60-65%. The left ventricular wall motion is normal. Grade I diastolic dysfunction, (abnormal relaxation pattern). The right ventricle size is mildly enlarged . Possible functionally bicuspid aortic valve with moderate aortic valvular thickening and moderate aortic valve restriction. Possible fusion of left and right coronary cusps. Mild to moderate valvular aortic stenosis. AV peak gradient is 41 mmHg. AV mean gradient is 23 mmHg. Aortic valve area is reduced at 0.79 cm^2. Compared to echo report dated 11/21/2021, no appreciable changes noted in LV function and peak and mean aortic valvular gradients. The BK at that time was 1.54 cm?. Recommend considering transesophageal echocardiogram to better visualize aortic valve given suboptimal windows. Procedure A complete two-dimensional transthoracic echocardiogram was performed (2D, M- mode, spectral and color flow Doppler). Echocardiology Report Study quality is fair. Left Ventricle moderate left ventricular hypertrophy. Ejection Fraction = 60-65%. The left ventricular wall motion is normal. Grade I diastolic dysfunction, (abnormal relaxation pattern). Left Atrium The left atrial size is normal. Right Atrium Right atrial size is normal. Right Ventricle The right ventricular systolic function is normal. The right ventricle size is mildly enlarged . Aortic Valve Possible functionally bicuspid aortic valve with moderate aortic valvular thickening and moderate aortic valve restriction. No aortic regurgitation. Mild to moderate valvular aortic stenosis. AV peak gradient is 41 mmHg. AV mean gradient is 23 mmHg. Aortic valve area is reduced at 0.79 cm^2. Mitral Valve Mitral valve structure is normal. Tricuspid Valve Structurally normal tricuspid valve. Pulmonic Valve The pulmonic valve is normal. Arteries The aortic root is normal in size. Venous The inferior vena cava is normal in size, and collapses normally with respiration. Effusion There is no pericardial effusion. MMode/2D Measurements & Calculations RVDd: 3.6 cm LVIDd: 3.9 cm FS: 31.6 % Ao root diam: 2.5 cm IVSd: 1.7 cm LVIDs: 2.7 cm EDV(Teich): 66.2 ml Ao root area: 4.8 cm2 LVPWd: 1.7 cm ESV(Teich): 26.3 ml ACS: 1.6 cm EF(Teich): 60.3 % LA dimension: 4.0 cm LVOT diam: 2.0 cm LVLd ap4: 9.9 cm EDV(MOD-sp2): 78.2 ml SV(MOD-sp4): 78.5 ml EDV(MOD-sp4): 132.0 ml ESV(MOD-sp2): 36.7 ml LVOT area: 3.1 cm2 LVLs ap4: 9.0 cm EF(MOD-sp2): 53.1 % ESV(MOD-sp4): 53.5 ml EF(MOD-sp4): 59.5 % Echocardiology Report TAPSE: 2.9 cm Ao Sinotubular Junction: 3.2 cm IVC Diam: 0.84 cm RVIDd/LVIDd: 0.93 EF (MOD-bp): 54.9 % Doppler Measurements & Calculations MV E max yasmani: 77.6 cm/sec Ao V2 max: 321.2 cm/sec LV V1 max P.5 mmHg MV A max yasmani: 108.4 cm/sec MV dec slope: 515.2 cm/sec2 Ao max P.3 mmHg LV V1 mean P.5 mmHg MV E/A: 0.72 MV dec time: 0.15 sec Ao V2 mean: 239.8 cm/sec LV V1 max: 79.5 cm/sec Lat Peak E' Yasmani: 7.2 cm/sec Ao mean P.2 mmHg LV V1 mean: 57.4 cm/sec E/E' Lat: 10.8 Ao V2 VTI: 71.2 cm LV V1 VTI: 18.5 cm Med Peak E' Yasmani: 6.3 cm/sec E/E' Med: 12.3 BK(I,D): 0.79 cm2 BK(V,D): 0.76 cm2 SV(LVOT): 56.5 ml PA V2 max: 97.7 cm/sec RAP systole: 3.0 mmHg AV VR: 0.25 PA max P.8 mmHg BK(VTI)/BSA_phl: 0.34 MV P1/2t-pr_phl: 44.1 msec FINAL REPORT Dictated: 12/11/2022 11:04 am Foster Currie (more content not included)...[facility] No data available for this section [facility] Future Appointments Appointment Date:07/17/2023 12:00:00 PM Scheduled Provider:Wilbert Centeno MD Location:FT.Cardiology Clinic Appointment Type[facility] Future Appointments Appointment Date:07/22/2023 04:15:00 PM Scheduled Provider:Wilbert Centeno MD Location:FT.Cardiology Clinic Appointment Type:Cardiology [facility] ([facility] assessment information available [facility] Work Phone: Hisfjbb general Narrative - Reported* Type Description Date Medical History Diabetes mellitus Medical History Aortic stenosis Medical History Essential hypertension Medical History History of respiratory failure [facility] Other Hospital Discharge instructions No data available for this section [facility] No data available for this section [facility] Hospital Summary Purpose Family History Relationship Condition Age at Onset Recorded Date/T geronimo father Diabetes mellitus Unknown Hypertension Unknown grandparent Diabetes mellitus Unknown Not Specified Diabetes mellitus Unknown sister Family history of other condition Unknown No Family History Records Found Advance Directives Advance Directive Response Recorded Date/ Time Advance Directives No April 24, 021 1:30pm Advance Directive Response Recorded Date/ Time Advance Directives No July 03, 2024 2:19pm Chief Complaint and Reason for Visit Chief Complaint G47.30 Chief Complaint G47.30 Unspecified sleep apnea Chief Complaint Additional Source Comments Patient Care team informatio n (unrecognized section and content) Team Status: Active Member Role Status Dates Maryanne Liao DO Primary Care Provider Active Team Status: Inactive Member Role Status Dates Maryanne Liao DO Primary Care Provider Active Start: July 16, 2024 End: July 16, 2024 ELDON Love Attending Provider Active Sta rt: July 16, 2024 End: July 16, 2024 Team Status: Active Member Role Status Dates Maryanne Liao DO Primary Care Provider Active Team Status: Active Member Role Status Dates Provider Conversion Attending Provider Active St art: October 16, 2023 Team Status: Inactive Member Role Status Dates Maryanne Liao DO Primary Care Provide r, Referring Provider Active Start: October 16, 2023 End: October 16, 2023 Harman Bennett MD Attending Provider Active S tart: October 16, 2023 End: October 16, 2023 Team Status: Inactive Member Role Status Dates Maryanne Liao DO Primary Care Provider Active Start: October 28, 2023 End: October 28, 2023 Harman Bennett MD Attending Provider Active S tart: October 28, 2023 End: October 28, 2023 Team Status: Inactive Member Role Status Dates Maryanne Liao DO Primary Care Provider Active Start: July 16, 2024 End: July 16, 2024 ELDON Love Attending Provider Active Sta rt: July 16, 2024 End: July 16, 2024 (unrecognized sect ion and content) No Status Records FoundNo Status Records Found INFORMATION SOURCE (unrecogn ized section and content) DATE CREATED AUTHOR 07/21/2023 [facility] DATE CREATED AUTHOR AUTHOR'S BAM STEVEN 11/02/2023 [facility] Goals (unrecognized section and content) Goals may be documented in a n alternate section FOR RECORDS PERTAINING TO PATIENTS WHO ARE OR HAVE BEEN ENROLLED IN A CHEMICAL DEPENDENCY/SUBSTANCEABUSE PROGRAM, SOME INFORMATION MAY BE OMITTED. This clinical summary was aggregated from multiple sources. Caution should be exercised in using it in the provision of clinical care. This summary normalizes information from multiple sources, and as a consequence, information in this document may materially change the coding, format and clinical context of patient data. In addition, data may be omitted in some cases. CLINICAL DECISIONS SHOULD BE BASED ON THE PRIMARY CLINICAL RECORDS. [facility]. provides no warranty or guarantee of the accuracy or completeness of information in this document.
== END 2025-01-26 13:30 | disposition home or self-care (01) ==
PROVIDERS: Emergency Provider Emergency Medicine; PCP Family Medicine
DX: S46.211A Strain of muscle, fascia and tendon of other parts of biceps, right arm, initial encounter (principal); X50.0XXA Overexertion from strenuous movement or load, initial encounter; F17.200 Nicotine dependence, unspecified, uncomplicated; S80.811A Abrasion, right lower leg, initial encounter; W45.8XXA Other foreign body or object entering through skin, initial encounter
CPT/HCPCS: 73060; 99283